=== PATIENT | female | born 1960 | race Caucasian/White ===

== ENCOUNTER 2023-10-22 15:45 | Emergency (ER) | payer OTHER, MEDICAID, SELFPAY ==
[2023-10-22 15:50] VITALS: BP 160/68; BMI 32.8
[2023-10-22 17:01] VITALS: BP 131/75
[2023-10-22 17:08] LABS: Urine Albumin Negative (Neg - Trace); Urine Bilirubin Negative (Negative); Urine Character Clear (Clear); Urine Color Yellow; Urine Glucose Negative (Negative); Urine Ketone Negative (Negative); Urine Leukocyte 2+ (Negative); Urine Nitrite Positive (Negative); Urine Occult Blood Trace (Negative); Urine Urobilinogen Negative (Neg - 1+); Urine pH 6.5 (5.0-9.0)
[2023-10-22 17:08] LABS: % Basophils 0.6 % (0-2); % Eosinophils 1.9 % (0-6); % Immature Granulocytes 0.2 % (0-0.5); % Lymphocytes 13.9 % (20.5-51.1); % Monocytes 6.7 % (1.7-9.3); % Neutrophils 76.7 % (42.2-75.2); Absolute Basophils 0.1 10^3/uL (0-0.2); Absolute Eosinophils 0.2 10^3/uL (0-0.7); Absolute Lymphocytes 1.2 10^3/uL (1.2-3.4); Absolute Monocytes 0.6 10^3/uL (0.1-0.6); Absolute Neutrophils 6.7 10^3/uL (1.4-6.5); Hematocrit 41.4 % (37.0-47.0); Hemoglobin 14.1 g/dL (12.0-16.0); Mean Corp Hgb Conc. 34.1 g/dL (33.0-37.0); Mean Corpuscular Hgb 29.8 pg (27.0-31.0); Mean Corpuscular Volume 87.5 fL (81.0-99.0); Mean Platelet Volume 11.1 fL (7.4-10.4); Nucleated Red Blood Cells % 0 %; Platelet Count 206 10^3/uL (130-400); Red Blood Cell Count 4.73 10^6/uL (4.20-5.40); Red Cell Dist. Width 13.2 % (11.5-14.5); White Blood Cell Count 8.8 10^3/uL (4.8-10.8)
[2023-10-22 17:29] LABS: Urine Squamous Cell 0-2 /LPF (Few)
[2023-10-22 17:30] LABS: Urine Bacteria Many (Negative); Urine Red Blood Cell 0-2 /HPF (0-2); Urine White Cell 50-60 /HPF (0-5)
[2023-10-22 17:47] LABS: ALT (SGPT) 14 U/L (0-35); AST (SGOT) 17 U/L (14-36); Alkaline Phosphatase 75 U/L (38-126); Blood Urea Nitrogen 11 mg/dl (7-17); Calcium 10.5 mg/dl (8.4-10.2); Carbon Dioxide 27 mmol/L (22-30); Chloride 106 mmol/L (98-107); Estimated Creatinine Clearance > 125 ml/min; Glucose 126 mg/dl (70-99); Potassium 4.1 mmol/L (3.5-5.1); Sodium 142 mmol/L (135-145); Total Bilirubin 0.5 mg/dl (0.2-1.3); eGFR > 60.00
[2023-10-22 18:29] VITALS: BP 127/105
[2023-10-22] MEDS: MONUROL 3 GM PO (18:33)
--- NOTE | 2023-10-22 23:49 | ED.GENMED ---
History of Present Illness
<Chiqui Zambrano NP - Last Filed: 10/23/23 16:23>
General
Chief Complaint: Urinary Symptoms
Source: patient
Exam Limitations: none
Time Seen by Provider: 10/22/23 16:10
Nursing documentation reviewed up to this point in time: agreed with
Travel History
Have you had any contact with someone who has COVID-19?: No
Do you have any symptoms of coronavirus? Fever > 100 degrees, chills, cough, shortness of breath, sore throat, loss of taste or smell, muscle aches, or headache?: No
History of Present Illness
History of Present Illness:
Patient to ED for UTI. She resides in a skilled facility. Reported UTI symptoms a few days ago. Urine C+S +e coli. Sent to ED for antibiotics. No fever/chills. No abdominal or back pain.
Past History
<Chiqui Zambrano NP - Last Filed: 10/23/23 16:23>
Past History
ED Past Medical History: Other (Dizziness, chronic; anemia, chronic numbness to bilateral feet.) and Other (recurrent syncope)
Social History
Tobacco: Non-smoker
Alcohol: None
Personal:
Living: with family
Employment: Not employed
Family History
Family History: Negative Diabetes or Early CAD
Review of Systems
<Chiqui Zambrano NP - Last Filed: 10/23/23 16:23>
Review of Systems
Allergies reviewed?: Yes
All Other Systems: ROS reviewed and negative except as documented in HPI and ROS
Constitutional: Reports no symptoms
EENT: Reports no symptoms
Respiratory: Reports no symptoms
Cardiac: Reports no symptoms
ABD/GI: Reports no symptoms
: Reports dysuria, frequency, incontinence and urgency
Musculoskeletal: Reports no symptoms
Skin: Reports no symptoms
Neurological: Reports no symptoms
Psychiatric: Reports no symptoms
Phy Exam
<Chiqui Zambrano NP - Last Filed: 10/23/23 16:23>
General Physical Exam
General Presentation: well appearing
General age: appears stated age
General Skin: warm and dry
General Habitus: normal
General Mental: alert
Cardiovascular Exam
Cardiovascular Exam: regular rate/rhythm
Pulmonary Exam
Pulmonary Exam: lungs clear and no respiratory distress
Gastrointestinal Exam
Gastrointestinal Exam: normal bowel sounds, non tender, soft and no organomegaly
Genitourinary Exam Female
Exam Female: vaginal bleeding
Vaginal Exam: blood
Vaginal Bleeding: minimal
Musculoskeletal Exam
Musculoskeletal Exam: neuro vasc intact
Skin Exam
Skin Exam: normal color, warm/dry and no rash
Psychiatric Exam
Psychiatric Exam: normal mood/affect
Course
<Chiqui Zambrano ADMISSIONS ADVISOR - Last Filed: 10/23/23 16:23>
Orders/Labs/Results
Orders:
Orders
10/22/23 16:16
Fosfomycin [Monurol] 3 gm PO ONCE ONE
10/22/23 16:40
Urinalysis Reflex To Culture Urgent
Date Specimen was Collected: 10/22/23
Time Specimen was Collected: 16:31
Urine Microscopic Reflex Cult Urgent
Urine Culture Urgent
RASHEEDA Source: U
Specimen Description:
Date Specimen was Collected: 10/22/23
Time Specimen was Collected: 16:31
10/22/23 16:47
US Pelvis W Transvag Combined Urgent
Reason For Exam: vaginal bleeding
10/22/23 16:59
Complete Blood Count/With Diff Urgent
Comprehensive Metabolic Panel Urgent
10/22/23 20:02
Iohexol [Omnipaque] See Protocol PO NOW STA
10/22/23 20:03
0.9% Sodium Chloride 1000 ml [Nss] 1,000 ml IV BOLUS
Abnormal Lab Results
10/22/23 10/22/23
16:40 16:59
MPV 11.1 H fL
(7.4-10.4)
Absolute Neuts (auto) 6.7 H 10^3/uL
(1.4-6.5)
Neutrophils % 76.7 H %
(42.2-75.2)
Lymphocytes % 13.9 L %
(20.5-51.1)
Creatinine 0.5 L mg/dL
(0.6-1.0)
Glucose 126 H mg/dl
(70-99)
Calcium 10.5 H mg/dl
(8.4-10.2)
Ur Occult Blood Reflex Trace A
(Negative)
Urine Nitrite (Reflex) Positive A
(Negative)
Leukocyte Esterase Rfl 2+ A
(Negative)
Urine WBC (Reflex) 50-60 A /HPF
(0-5)
Urine Bacteria (Reflex) Many A
(Negative)
10/22/23 16:59
10/22/23 16:59
Vital Signs
Initial and Last Documented VS:
Initial Vital Signs
Temp Pulse Resp BP Pulse Ox
98.5 F 79 17 160/68 95
10/22/23 15:50 10/22/23 15:50 10/22/23 15:50 10/22/23 15:50 10/22/23 15:50
Last Documented Vital Signs
Temp Pulse Resp BP Pulse Ox
98 F 69 20 146/48 96
10/23/23 01:36 10/23/23 01:36 10/23/23 01:36 10/23/23 01:36 10/23/23 01:37
<Anshu Oliver PA-C - Last Filed: 10/24/23 07:11>
Orders/Labs/Results
Orders:
Orders
10/22/23 16:16
Fosfomycin [Monurol] 3 gm PO ONCE ONE
10/22/23 16:40
Urinalysis Reflex To Culture Urgent
Date Specimen was Collected: 10/22/23
Time Specimen was Collected: 16:31
Urine Microscopic Reflex Cult Urgent
Urine Culture Urgent
RASHEEDA Source: U
Specimen Description:
Date Specimen was Collected: 10/22/23
Time Specimen was Collected: 16:31
10/22/23 16:47
US Pelvis W Transvag Combined Urgent
Reason For Exam: vaginal bleeding
10/22/23 16:59
Complete Blood Count/With Diff Urgent
Comprehensive Metabolic Panel Urgent
10/22/23 20:02
Iohexol [Omnipaque] See Protocol PO NOW STA
10/22/23 20:03
0.9% Sodium Chloride 1000 ml [Nss] 1,000 ml IV BOLUS
Abnormal Lab Results
10/22/23 10/22/23
16:40 16:59
MPV 11.1 H fL
(7.4-10.4)
Absolute Neuts (auto) 6.7 H 10^3/uL
(1.4-6.5)
Neutrophils % 76.7 H %
(42.2-75.2)
Lymphocytes % 13.9 L %
(20.5-51.1)
Creatinine 0.5 L mg/dL
(0.6-1.0)
Glucose 126 H mg/dl
(70-99)
Calcium 10.5 H mg/dl
(8.4-10.2)
Ur Occult Blood Reflex Trace A
(Negative)
Urine Nitrite (Reflex) Positive A
(Negative)
Leukocyte Esterase Rfl 2+ A
(Negative)
Urine WBC (Reflex) 50-60 A /HPF
(0-5)
Urine Bacteria (Reflex) Many A
(Negative)
10/22/23 16:59
10/22/23 16:59
Vital Signs
Initial and Last Documented VS:
Initial Vital Signs
Temp Pulse Resp BP Pulse Ox
98.5 F 79 17 160/68 95
10/22/23 15:50 10/22/23 15:50 10/22/23 15:50 10/22/23 15:50 10/22/23 15:50
Last Documented Vital Signs
Temp Pulse Resp BP Pulse Ox
98 F 69 20 146/48 96
10/23/23 01:36 10/23/23 01:36 10/23/23 01:36 10/23/23 01:36 10/23/23 01:37
<Chiqui Zambrano NP - Last Filed: 10/23/23 16:23>
*Radiology
Radiology exam reviewed: radiology read reviewed
*Pulse Oximetry
Patient hypoxic: no
*Critical Care Note
Total Time (30-74mins, 75-104mins- exclusive of procedures): Not Applicable
<Chiqui Zambrano NP - Last Filed: 10/23/23 16:23>
Update Note
Update Note:
Vaginal bleeding noted on exam today. Patient was unaware of bleeding. US report reviewed. She was notified of findings and need for FRONT OFFICE SPEC follow up. SHe will call in AM for appoitnment. Given Fosfomycin in dept. Tolerated med without and
adverse reactions. She is discharged home.
<Anshu Oliver PA-C - Last Filed: 10/24/23 07:11>
Update Note
Update Note:
Vaginal bleeding noted on exam today. Patient was unaware of bleeding. US report reviewed. She was notified of findings and need for FRONT OFFICE SPEC follow up. SHe will call in AM for appoitnment. Given Fosfomycin in dept. Tolerated med without and
adverse reactions. She is discharged home.
7:11 AM October 18: Urine culture shows greater than 100,000 colony-forming units of E. coli. Given fosfomycin in the department. Sensitivities pending
ED Attending Note
<Chiqui Zambrano NP - Last Filed: 10/23/23 16:23>
-
Portions of this chart may have been created with voice recognition software.� Occasional wrong word or��sound alike� substitutions may have occurred due to the inherent limitations of voice recognition software.
Discharge Plan
Departure
Patient Disposition: Care Home/SNF
Date of Disposition: 10/22/23
Time of Disposition: 19:28
Patient with high blood pressure during this ER visit?: No
Condition: Good
Covid-19: Not Applicable
Discharge Problem:
UTI (urinary tract infection), Vaginal bleeding
Instructions: Urinary Tract Infection, Adult (DC), Bleeding After Menopause
Prescriptions:
No Action
acetaminophen 325 mg Tablet
650 mg PO Q4H PRN (Reason: temp>100F)
acetaminophen 325 mg Tablet
650 mg PO Q6H PRN (Reason: mild pain)
atorvastatin 10 mg tablet
10 mg PO DAILY
cyanocobalamin (vitamin B-12) [Vitamin B-12] 1,000 mcg Tablet
1,000 mcg PO DAILY
aspirin 81 mg Tablet,Delayed Release (Dr/Ec)
81 mg PO DAILY
meropenem 1 gram Recon Soln
1 g IV BID
Referrals:
Luis Eduardo Yusuf DO [Family Provider] -
Maya Fleming MD [Active] - Call in 1-3 days for appt
Activity Restrictions/Additional Instructions:
As we discussed, your pelvic ultrasound shows endometrial thickening. You will need to follow up with gynecology for further evaluation of your vaginal bleeding and ultrasound results. Return to the emergency department for weakness, worsening
bleeding, pain, or for any further concerns.
Interventions
Interventions:
*Risk Screen - Suicide Last Done: 10/22/23 15:50
*General Assessment Last Done: 10/22/23 15:50
*Neglect/Abuse Screening Last Done: 10/22/23 15:50
ED- Fall Risk Assessment Last Done: 10/22/23 16:15
*ED COVID-19 Vaccine History Last Done: 10/23/23 01:37
*Nursing Disposition Last Done: 10/23/23 01:37
ED-Female Genitourinary Assessment Last Done: 10/22/23 16:15
Discharge Date and Time
Discharge Date/Time: 10/23/23 01:38
Print Language: TUNISIAN
[2023-10-23 01:36] VITALS: BP 146/48
== END 2023-10-23 01:38 ==
LOC: EMR 15:45
PROVIDERS: Nurse Practitioner; EMERGENCY PHYSICIAN Emergency Medicine; FAMILY PHYSICIAN Internal Medicine
DX: N39.0 Urinary tract infection, site not specified (principal); N93.9 Abnormal uterine and vaginal bleeding, unspecified; D64.9 Anemia, unspecified
CPT/HCPCS: 99283; 76830; 76856; 80053; 81003; 81015; 85025; 87086; 87088; 87186

== ENCOUNTER 2023-11-09 15:34 | Inpatient (IN) | payer MEDICAID, SELFPAY ==
[2023-11-09] VITALS (28 sets, daily range): BP systolic 88–148; BP diastolic 54–96; BMI 33.2
[2023-11-09 10:46] LABS: % Basophils 0.3 % (0-2); % Eosinophils 2.5 % (0-6); % Immature Granulocytes 0.3 % (0-0.5); % Lymphocytes 18.1 % (20.5-51.1); % Neutrophils 73.8 % (42.2-75.2); Absolute Eosinophils 0.2 10^3/uL (0-0.7); Absolute Lymphocytes 1.2 10^3/uL (1.2-3.4); Absolute Monocytes 0.3 10^3/uL (0.1-0.6); Absolute Neutrophils 4.7 10^3/uL (1.4-6.5); Hematocrit 36.6 % (37.0-47.0); Hemoglobin 12.3 g/dL (12.0-16.0); Mean Corp Hgb Conc. 33.6 g/dL (33.0-37.0); Mean Corpuscular Hgb 30.4 pg (27.0-31.0); Mean Corpuscular Volume 90.4 fL (81.0-99.0); Nucleated Red Blood Cells % 0 %; Platelet Count 182 10^3/uL (130-400); Red Blood Cell Count 4.05 10^6/uL (4.20-5.40); Red Cell Dist. Width 13.4 % (11.5-14.5); White Blood Cell Count 6.4 10^3/uL (4.8-10.8)
[2023-11-09] MEDS: NSS 1000 IV ×3 (10:52→16:34)
[2023-11-09 10:55] LABS: INR 1.01; PT 13.1 Sec (11.4-14.6)
[2023-11-09] MEDS: ZOFRAN 4 MG IV (10:55)
[2023-11-09 10:56] LABS: APTT 31.4 Sec (23.4-35.0)
[2023-11-09] MEDS: TRANEXAMIC ACID 100 IV (11:12)
[2023-11-09 11:16] LABS: ALT (SGPT) 15 U/L (0-35); AST (SGOT) 17 U/L (14-36); Alkaline Phosphatase 72 U/L (38-126); Blood Urea Nitrogen 12 mg/dl (7-17); Calcium 10.3 mg/dl (8.4-10.2); Carbon Dioxide 23 mmol/L (22-30); Chloride 108 mmol/L (98-107); Glucose 130 mg/dl (70-99); Potassium 3.8 mmol/L (3.5-5.1); Sodium 140 mmol/L (135-145); Total Bilirubin 0.5 mg/dl (0.2-1.3); Total Protein 6.8 g/dl (6.3-8.2); eGFR > 60.00
[2023-11-09] MEDS: NSS 500 IV (11:33)
--- NOTE | 2023-11-09 11:43 | ED.GENMED ---
History of Present Illness
<Columba Rucker PA-C - Last Filed: 11/09/23 20:05>
General
Chief Complaint: Vaginal Bleeding
Source: patient
Exam Limitations: none
Time Seen by Provider: 11/09/23 10:32
Nursing documentation reviewed up to this point in time: agreed with
Travel History
Have you had any contact with someone who has COVID-19?: No
Do you have any symptoms of coronavirus? Fever > 100 degrees, chills, cough, shortness of breath, sore throat, loss of taste or smell, muscle aches, or headache?: No
History of Present Illness
History of Present Illness:
63 y/o F h/o HLD
from [facility] for vaginal bleeding, near syncope
ptwas seen here 10/21 for uti and was bleeding then. had US showing endometrial thickening and fibroids
she was supposed to f/u with OB/GYNE outpatient but hasn't yet
has continued to have some bleeding the past few weeks
sounds like it increased over the past 4 ays, with some clots at times, so she stayed in bed mostly
today suddently while sitting she had spontaneous hemorrhage through her clothing onto the floor, passing clots
she got near syncopal for staff who called 911
bps for ems stable but pt is pale and bleeding
no pain
no h/o dvt/pe
no thinners
Past History
<Columba Rucker PA-C - Last Filed: 11/09/23 20:05>
Past History
ED Past Medical History: Other (Dizziness, chronic; anemia, chronic numbness to bilateral feet.) and Other (recurrent syncope)
Social History
Tobacco: Non-smoker
Alcohol: None
Personal:
Living: with family
Employment: Not employed
Family History
Family History: Negative Diabetes or Early CAD
Review of Systems
<Columba Rucker PA-C - Last Filed: 11/09/23 20:05>
Review of Systems
Allergies reviewed?: Yes
All Other Systems: Not applicable
Phy Exam
<Columba Rucker PA-C - Last Filed: 11/09/23 20:05>
Physical Exam
Physical Exam:
GENERAL: Alert , in no apparent distress
EYE: pupils equal and reactive
ENT: o/p clr, mmm.
CARDIAC: Regular rate and rhythm .
LUNGS: Clear breath sounds bilaterally, no acute respiratory distress, no wheezes/rales/rhonchi
ABDOMEN: Soft, without focal tenderness, no r/g, no cvat, normal bowel sounds
: ACTIVE BLEEDING VAGINALLY, LARGE WITH CLOTS, UNABLE TO VISUALIZE CERVIX, SUCTION USED,
ULTIMATELY PACKED WITH GAUZE
NEUROLOGICAL: Alert and oriented, no focal neuro deficits
SKIN: Warm and dry, skin intact. pale
MUSCULOSKELETAL: MILD edema, well perfused.
PSYCH: Normal and appropriate interaction.
Course
<Columba Rucker PA-C - Last Filed: 11/09/23 20:05>
Orders/Labs/Results
Orders:
Orders
11/09/23 10:31
IV Insert/Care/Rem.- Treatment PRN
Pulse Ox/spot Check [RESP] Urgent
Quantity: 1
Special Instructions: ON ROOM AIR
11/09/23 10:37
Type+Screen Urgent
Complete Blood Count/With Diff Urgent
Comprehensive Metabolic Panel Urgent
PT/INR [Prothrombin Time] Urgent
PTT Urgent
11/09/23 10:52
0.9% Sodium Chloride 1000 ml [Nss] 1,000 ml IV BOLUS
Ondansetron Injectable [Zofran] 4 mg .ROUTE .[facility]
11/09/23 10:55
Ondansetron Injectable [Zofran] 4 mg IV NOW STA
11/09/23 11:00
Blood Bank Products [* Blood Bank Products] Urgent
Blood Bank Products: *Packed RBC Leuko(PRBC's)
Quantity: 2
Transfuse Today: Yes
Reason: Bleeding
11/09/23 11:02
Tranexamic Acid 1000 mg/100 ml [Tranexamic Acid] 1,000 mg in 100 ml IV ONCE
11/09/23 11:23
Massive Tranfusion Protocol Stat
Reason to initiate: Bleeding/Hemorrhaging
An initial MTP pack includes:
�Four (4)) units of type specific, type compatible red blood cells.
�Four (4) units of type specific, or type compatible plasma. Type A thawed plasma may also be used if
type specific or type compatible is not readily available. Thawing plasma takes approximately 20-30
mins. If cryoprecipitate is requested with the initial MTP pack, thaw 3 FFP and 1 CRYOP, followed by the
4th FFP.
�One (1) unit of apheresis platelet (if available). If we do not have platelets available, Blood Bank
places a STAT order for two (2) units.
�Cryoprecipitate will be thawed upon request of the physician. If cryoprecipitate is requested by the
physician, alert physician there is an approximate 20-30 minute wait for thawing. If physician still
requests, thaw 1 pre-pooled cryoprecipitate. There will be no automatic thawing of cryoprecipitate by
the blood bank staff.
�Notify the ED, OR, or patient care area when MTP set is ready.
A Blood Permit is Required for all Blood.
FOR LAB PICKUP:
Take order sheet to Blood Bank to waste picker blood products in validated cooler
Immediately return to patient care area.
Blood products released by
Blood Products picked up by
Sent to
Date and Time
11/09/23 11:25
EKG [Electrocardiogram (*1)] Urgent
Reason for Study: Bradycardia / Tachycardia
11/09/23 11:26
EKG- Treatment ONCE
11/09/23 11:28
Emergent Blood Release Urgent
Blood Bank Products: *Packed RBC Leuko(PRBC's)
Quantity: 2
Reason: Bleeding
A Blood Permit is Required for all Blood.
FOR LAB PICKUP:
Take order sheet to Blood Bank to waste picker blood products in validated cooler
Immediately return to patient care area.
Blood products released by
Blood Products picked up by
Sent to
Date and Time
11/09/23 11:32
0.9% Sodium Chloride 500 ml [Nss] 500 ml IV BOLUS
11/09/23 11:35
0.9% Sodium Chloride 1000 ml [Nss] 1,000 ml IV BOLUS
11/09/23 11:41
HYDROmorphone [Dilaudid] 0.25 mg IV PACU-Q5MPRN PRN
HYDROmorphone [Dilaudid] 0.5 mg IV PACU-Q5MPRN PRN
Meperidine [Demerol] 12.5 mg IV PACU-Q5MPRN PRN
Ondansetron Injectable [Zofran] 4 mg IV PACU-ONCEPRN PRN
Prochlorperazine [Compazine] 5 mg IV PACU-ONCEPRN PRN
Notify MD As Directed
Notify physician if: for SDS patients with known or suspected sleep obstructive sleep apnea, monitor in the
PACU.
Notify MD for any apneic/desaturation episodes
O2 Therapy [RESP] Urgent
Titrate/Wean O2 to maintain O2 sat greater than (%): 92
Special Instructions: -Provide supplemental oxygen to achieve O2 sat of 92% or greater.
-After 15 min, may wean O2 and discontinue if patient is able to maintain O2 sat of 92%
or greater during recovery period.
If patient is a discharge home, without oxygen therapy, notify anestheiologist if
unable to maintain O2 SAT of 92% or greater on room air for MD clearance.
11/09/23 11:42
Hematocrit Stat
Hemoglobin Stat
11/09/23 11:45
Normosol (Mult Electrolytes) [Normosol-R] 1,000 ml IV PER PROTOCOL
11/09/23 12:04
Phenylephrine HCl/0.9% NaCl [Nash-Synephrine] 1,000 mcg .ROUTE .STK-MED ONE
11/09/23 12:07
Fentanyl Citrate/Pf [Sublimaze] 100 mcg .ROUTE .[facility]-MED ONE
Midazolam HCl [Versed] 2 mg .ROUTE .STK-MED ONE
11/09/23 12:17
Propofol [Diprivan] 20 ml .ROUTE .[facility]-MED
Succinylcholine Chloride [Succinylcholine] 200 mg .ROUTE .STK-MED ONE
11/09/23 12:53
Dexamethasone Sod Phosphate [Decadron] 20 mg .ROUTE .ST[facility]-MED ONE
Ondansetron Injectable [Zofran] 4 mg .ROUTE .STK-MED ONE
OR Frozen Section Stat
Pre-Operative Diagnosis: abnormal uterine bleeding
Post-Operative Diagnosis: abnormal uterine bleeding
Operative Procedure: Hysteroscopy, D&C
Surgeon: Akhil
Circulating Nurse: Josey Richard
Type of Anesthesia: General
OR Room: [facility] - [id number]
Time: 13:12
Frozen Section: Endometrial curettings
Time: 13:12
Frozen Section: Endocervical curettings
11/09/23 12:54
Acetaminophen 1000MG/100Ml [Ofirmev] 1,000 mg in 100 ml .ROUTE .STK-MED
11/09/23 12:59
OR Cytology Routine
Date Specimen was Collected: 11/09/23
Time Specimen was Collected: 13:00
Source: Thin Prep PAP, Cervical
Clinical Impression: abnormal uterine bleeding
11/09/23 13:12
Urine Culture Routine
RASHEEDA Source: Urine
Specimen Description:
Obtained by: Straight Cath
Date Specimen was Collected: 11/09/23
Time Specimen was Collected: 12:53
11/09/23 13:32
Admit/Transfer Patient As Directed
Co-Sign Provider:
Level of Care: Inpatient admission
Assign to:: Telemetry
Physician / Group: Akhil
Transfer to: Medical/Surgical
Diagnosis: s/p hysteroscopy D&C; postmenopausal bleeding; hemorrhage
Patient Condition: Good
Reason for Telemetry: Other
Other Reason for Telemetry: bleeding; hx of coronary artery disease
Date to Stop Telemetry: 11/11/23
Time to Stop Telemetry: 11:00
Reason for Hospitalization: hemorrhage
Expected length of stay greater than two midnights?: Yes
ELOS- Estimated Length of Stay in days: 3
I certify the patient meets the requirements for IP care: Yes
Reason for Overnight Stay: Bleeding/Bleeding Risk
11/09/23 14:05
Green Catheter [Catheter- Indwelling] As Directed
Reason for insertion: Anai-Op Remove POD #2
Comment: had vaginal packing, unable to ambulate, need accurate I/Os
I/O [Intake/ Output] As Directed
Frequency: q1h
Call for Urine Output less than: 30ml/hr
11/09/23 14:20
CT Chest/abd/pel W Iv Cont Urgent
Reason For Exam: endometrial cancer, eval for metastatic disease
11/09/23 14:25
Consult Cardiology [CARDIOLOGY CONSULT] Urgent
Consulting Provider: Ayo Corrales
Was physician already notified: Yes
Reason for consult: cardiac clearance for hysterectomy 11/09
Consult Hematology [HEMATOLOGY CONSULT] Urgent
Consulting Provider: Rajinder Lagos
Was physician already notified: Yes
Reason for consult: endometrial cancer
11/09/23 14:29
DX Deep Vein Thrombosis Video Routine
11/09/23 Dinner
Clear Liquid
At Your Request: Limited Participation
11/09/23 15:36
0.9% Sodium Chloride 1000 ml [Nss] 1,000 ml IV 125 mls/hr
Acetaminophen [Tylenol] 650 mg PO Q4HPRN PRN
Acetaminophen [Tylenol] 650 mg PO Q6HPRN PRN
Ondansetron Injectable [Zofran] 4 mg IV Q6HPRN PRN
Observe for Vaginal Bleeding DIRECTED
Call for: saturating maxipad hourly
11/09/23 15:36
Admit Patient As Directed
Co-Sign Provider:
Level of Care: Inpatient admission
Assign to:: Telemetry
Physician / Group: Akhil
Diagnosis: Postmenopausal bleeding/hemorrhage
Patient Condition: Good
Reason for Telemetry: Other
Other Reason for Telemetry: bleeding, anemia, hx coronary art. disease
Date to Stop Telemetry: 11/11/23
Time to Stop Telemetry: 11:00
Reason for Hospitalization: postmenopausal bleeding, hemorrhage concern for malignancy
Expected length of stay greater than two midnights?: Yes
ELOS- Estimated Length of Stay in days: 3
I certify the patient meets the requirements for IP care: Yes
Reason for Overnight Stay: Bleeding/Bleeding Risk
Diagnosis: post-operative hysterectomy
Activity As Directed
Activity Level: Bedrest
Out of Bed-Early Mobility
Advance Diet as Tolerated As Directed
Goal Diet: Regular
Anti-embolism (JODI) Hose As Directed
Type: Thigh high
INT (Intravenous Needle Therapy) As Directed
Intake/ Output As Directed
Frequency: Per unit guidelines
Call for Urine Output less than: 30 mL over 1 hour
Comment: Strict Intake and Output
Notify MD As Directed
Notify physician if: Call doctor for temperature >100.4 F, systolic blood pressure > 150 or < 90, urine output
less than 30 mL over 1 hour, Pulse > 100 or < 50
Pneumatic Compression Sleeves As Directed
Type: Thigh high
Vaginal Packing As Directed
Comment: leave in
Vital Signs As Directed
Frequency: Per unit guidelines
Call for:: temp >100.4
Vital Signs As Directed
Frequency: Post-operative guidelines
Call for:: temp > 100.4 F, SBP > 150 or < 90, Pulse > 100 or < 50
Rx Incentive Spirometry [RESP] Routine
Frequency: q1h while awake
DX Deep Vein Thrombosis Video Routine
11/09/23 16:39
Basic Metabolic Panel Urgent
Comment: in PACU
H&H Urgent
Comment: in PACU
11/09/23 23:00
Hematocrit Urgent
Hemoglobin Urgent
11/10/23 Breakfast
NPO
Allow oral meds: No
Allow clear liquids: No
NPO for procedure after (time): midnight 11/10/23
Blood Urea Nitrogen IN AM
Complete Blood Count/With Diff IN AM
Creatinine IN AM
Electrolytes IN AM
Heparin 5,000 units SC ONCE ONE
11/10/23 08:00
Atorvastatin [Lipitor] 10 mg PO DAILY
11/11/23 11:00
DC Protocol for Telemetry ONCE
Abnormal Lab Results
11/09/23 11/09/23
10:37 11:42
RBC 4.05 L 10^6/uL
(4.20-5.40)
Hgb 9.7 L D g/dL
(12.0-16.0)
Hct 36.6 L % 28.9 L %
(37.0-47.0) (37.0-47.0)
MPV 11.0 H fL
(7.4-10.4)
Lymphocytes % 18.1 L %
(20.5-51.1)
Chloride 108 H mmol/L
(98-107)
Creatinine 0.5 L mg/dL
(0.6-1.0)
Glucose 130 H mg/dl
(70-99)
Calcium 10.3 H mg/dl
(8.4-10.2)
Antibody Screen Positive A
(Negative)
Crossmatch IS Only See Detail
MTS Gel Crossmatch See Detail
11/09/23 11:42
11/09/23 10:37
Vital Signs
Initial and Last Documented VS:
Initial Vital Signs
Pulse Resp Pulse Ox
70 20 99
11/09/23 10:35 11/09/23 10:35 11/09/23 10:35
Last Documented Vital Signs
Temp Pulse Resp BP Pulse Ox
97.8 F 94 18 144/73 96
11/09/23 23:20 11/09/23 23:20 11/09/23 23:20 11/09/23 23:20 11/09/23 23:20
<Cora Molina, DO - Last Filed: 11/10/23 01:48>
Orders/Labs/Results
Orders:
Orders
11/09/23 10:31
IV Insert/Care/Rem.- Treatment PRN
Pulse Ox/spot Check [RESP] Urgent
Quantity: 1
Special Instructions: ON ROOM AIR
11/09/23 10:37
Type+Screen Urgent
Complete Blood Count/With Diff Urgent
Comprehensive Metabolic Panel Urgent
PT/INR [Prothrombin Time] Urgent
PTT Urgent
11/09/23 10:52
0.9% Sodium Chloride 1000 ml [Nss] 1,000 ml IV BOLUS
Ondansetron Injectable [Zofran] 4 mg .ROUTE .STK-MED ONE
11/09/23 10:55
Ondansetron Injectable [Zofran] 4 mg IV NOW STA
11/09/23 11:00
Blood Bank Products [* Blood Bank Products] Urgent
Blood Bank Products: *Packed RBC Leuko(PRBC's)
Quantity: 2
Transfuse Today: Yes
Reason: Bleeding
11/09/23 11:02
Tranexamic Acid 1000 mg/100 ml [Tranexamic Acid] 1,000 mg in 100 ml IV ONCE
11/09/23 11:23
Massive Tranfusion Protocol Stat
Reason to initiate: Bleeding/Hemorrhaging
An initial MTP pack includes:
�Four (4)) units of type specific, type compatible red blood cells.
�Four (4) units of type specific, or type compatible plasma. Type A thawed plasma may also be used if
type specific or type compatible is not readily available. Thawing plasma takes approximately 20-30
mins. If cryoprecipitate is requested with the initial MTP pack, thaw 3 FFP and 1 CRYOP, followed by the
4th FFP.
�One (1) unit of apheresis platelet (if available). If we do not have platelets available, Blood Bank
places a STAT order for two (2) units.
�Cryoprecipitate will be thawed upon request of the physician. If cryoprecipitate is requested by the
physician, alert physician there is an approximate 20-30 minute wait for thawing. If physician still
requests, thaw 1 pre-pooled cryoprecipitate. There will be no automatic thawing of cryoprecipitate by
the blood bank staff.
�Notify the ED, OR, or patient care area when MTP set is ready.
A Blood Permit is Required for all Blood.
FOR LAB PICKUP:
Take order sheet to Blood Bank to waste picker blood products in validated cooler
Immediately return to patient care area.
Blood products released by
Blood Products picked up by
Sent to
Date and Time
11/09/23 11:25
EKG [Electrocardiogram (*1)] Urgent
Reason for Study: Bradycardia / Tachycardia
11/09/23 11:26
EKG- Treatment ONCE
11/09/23 11:28
Emergent Blood Release Urgent
Blood Bank Products: *Packed RBC Leuko(PRBC's)
Quantity: 2
Reason: Bleeding
A Blood Permit is Required for all Blood.
FOR LAB PICKUP:
Take order sheet to Blood Bank to waste picker blood products in validated cooler
Immediately return to patient care area.
Blood products released by
Blood Products picked up by
Sent to
Date and Time
11/09/23 11:32
0.9% Sodium Chloride 500 ml [Nss] 500 ml IV BOLUS
11/09/23 11:35
0.9% Sodium Chloride 1000 ml [Nss] 1,000 ml IV BOLUS
11/09/23 11:41
HYDROmorphone [Dilaudid] 0.25 mg IV PACU-Q5MPRN PRN
HYDROmorphone [Dilaudid] 0.5 mg IV PACU-Q5MPRN PRN
Meperidine [Demerol] 12.5 mg IV PACU-Q5MPRN PRN
Ondansetron Injectable [Zofran] 4 mg IV PACU-ONCEPRN PRN
Prochlorperazine [Compazine] 5 mg IV PACU-ONCEPRN PRN
Notify MD As Directed
Notify physician if: for SDS patients with known or suspected sleep obstructive sleep apnea, monitor in the
PACU.
Notify MD for any apneic/desaturation episodes
O2 Therapy [RESP] Urgent
Titrate/Wean O2 to maintain O2 sat greater than (%): 92
Special Instructions: -Provide supplemental oxygen to achieve O2 sat of 92% or greater.
-After 15 min, may wean O2 and discontinue if patient is able to maintain O2 sat of 92%
or greater during recovery period.
If patient is a discharge home, without oxygen therapy, notify anestheiologist if
unable to maintain O2 SAT of 92% or greater on room air for MD clearance.
11/09/23 11:42
Hematocrit Stat
Hemoglobin Stat
11/09/23 11:45
Normosol (Mult Electrolytes) [Normosol-R] 1,000 ml IV PER PROTOCOL
11/09/23 12:04
Phenylephrine HCl/0.9% NaCl [Nash-Synephrine] 1,000 mcg .ROUTE .STK-MED ONE
11/09/23 12:07
Fentanyl Citrate/Pf [Sublimaze] 100 mcg .ROUTE .[facility]-MED ONE
Midazolam HCl [Versed] 2 mg .ROUTE .[facility]-MED ONE
11/09/23 12:17
Propofol [Diprivan] 20 ml .ROUTE .[facility]-MED
Succinylcholine Chloride [Succinylcholine] 200 mg .ROUTE .[facility]-MED ONE
11/09/23 12:53
Dexamethasone Sod Phosphate [Decadron] 20 mg .ROUTE .[facility]-MED ONE
Ondansetron Injectable [Zofran] 4 mg .ROUTE .[facility]-MED ONE
OR Frozen Section Stat
Pre-Operative Diagnosis: abnormal uterine bleeding
Post-Operative Diagnosis: abnormal uterine bleeding
Operative Procedure: Hysteroscopy, D&C
Surgeon: Akhil
Circulating Nurse: Josey Ramos
Type of Anesthesia: General
OR Room: [place] [id number]
Time: 13:12
Frozen Section: Endometrial curettings
Time: 13:12
Frozen Section: Endocervical curettings
11/09/23 12:54
Acetaminophen 1000MG/100Ml [Ofirmev] 1,000 mg in 100 ml .ROUTE .STK-MED
11/09/23 12:59
OR Cytology Routine
Date Specimen was Collected: 11/09/23
Time Specimen was Collected: 13:00
Source: Thin Prep PAP, Cervical
Clinical Impression: abnormal uterine bleeding
11/09/23 13:12
Urine Culture Routine
RASHEEDA Source: Urine
Specimen Description:
Obtained by: Straight Cath
Date Specimen was Collected: 11/09/23
Time Specimen was Collected: 12:53
11/09/23 13:32
Admit/Transfer Patient As Directed
Co-Sign Provider:
Level of Care: Inpatient admission
Assign to:: Telemetry
Physician / Group: Akhil
Transfer to: Medical/Surgical
Diagnosis: s/p hysteroscopy D&C; postmenopausal bleeding; hemorrhage
Patient Condition: Good
Reason for Telemetry: Other
Other Reason for Telemetry: bleeding; hx of coronary artery disease
Date to Stop Telemetry: 11/11/23
Time to Stop Telemetry: 11:00
Reason for Hospitalization: hemorrhage
Expected length of stay greater than two midnights?: Yes
ELOS- Estimated Length of Stay in days: 3
I certify the patient meets the requirements for IP care: Yes
Reason for Overnight Stay: Bleeding/Bleeding Risk
11/09/23 14:05
Green Catheter [Catheter- Indwelling] As Directed
Reason for insertion: Anai-Op Remove POD #2
Comment: had vaginal packing, unable to ambulate, need accurate I/Os
I/O [Intake/ Output] As Directed
Frequency: q1h
Call for Urine Output less than: 30ml/hr
11/09/23 14:20
CT Chest/abd/pel W Iv Cont Urgent
Reason For Exam: endometrial cancer, eval for metastatic disease
11/09/23 14:25
Consult Cardiology [CARDIOLOGY CONSULT] Urgent
Consulting Provider: Ayo Corrales
Was physician already notified: Yes
Reason for consult: cardiac clearance for hysterectomy 11/09
Consult Hematology [HEMATOLOGY CONSULT] Urgent
Consulting Provider: Rajinder Lagos
Was physician already notified: Yes
Reason for consult: endometrial cancer
11/09/23 14:29
DX Deep Vein Thrombosis Video Routine
11/09/23 Dinner
Clear Liquid
At Your Request: Limited Participation
11/09/23 15:36
0.9% Sodium Chloride 1000 ml [Nss] 1,000 ml IV 125 mls/hr
Acetaminophen [Tylenol] 650 mg PO Q4HPRN PRN
Acetaminophen [Tylenol] 650 mg PO Q6HPRN PRN
Ondansetron Injectable [Zofran] 4 mg IV Q6HPRN PRN
Observe for Vaginal Bleeding DIRECTED
Call for: saturating maxipad hourly
11/09/23 15:36
Admit Patient As Directed
Co-Sign Provider:
Level of Care: Inpatient admission
Assign to:: Telemetry
Physician / Group: Akhil
Diagnosis: Postmenopausal bleeding/hemorrhage
Patient Condition: Good
Reason for Telemetry: Other
Other Reason for Telemetry: bleeding, anemia, hx coronary art. disease
Date to Stop Telemetry: 11/11/23
Time to Stop Telemetry: 11:00
Reason for Hospitalization: postmenopausal bleeding, hemorrhage concern for malignancy
Expected length of stay greater than two midnights?: Yes
ELOS- Estimated Length of Stay in days: 3
I certify the patient meets the requirements for IP care: Yes
Reason for Overnight Stay: Bleeding/Bleeding Risk
Diagnosis: post-operative hysterectomy
Activity As Directed
Activity Level: Bedrest
Out of Bed-Early Mobility
Advance Diet as Tolerated As Directed
Goal Diet: Regular
Anti-embolism (JODI) Hose As Directed
Type: Thigh high
INT (Intravenous Needle Therapy) As Directed
Intake/ Output As Directed
Frequency: Per unit guidelines
Call for Urine Output less than: 30 mL over 1 hour
Comment: Strict Intake and Output
Notify MD As Directed
Notify physician if: Call doctor for temperature >100.4 F, systolic blood pressure > 150 or < 90, urine output
less than 30 mL over 1 hour, Pulse > 100 or < 50
Pneumatic Compression Sleeves As Directed
Type: Thigh high
Vaginal Packing As Directed
Comment: leave in
Vital Signs As Directed
Frequency: Per unit guidelines
Call for:: temp >100.4
Vital Signs As Directed
Frequency: Post-operative guidelines
Call for:: temp > 100.4 F, SBP > 150 or < 90, Pulse > 100 or < 50
Rx Incentive Spirometry [RESP] Routine
Frequency: q1h while awake
DX Deep Vein Thrombosis Video Routine
11/09/23 16:39
Basic Metabolic Panel Urgent
Comment: in PACU
H&H Urgent
Comment: in PACU
11/09/23 23:00
Hematocrit Urgent
Hemoglobin Urgent
11/10/23 Breakfast
NPO
Allow oral meds: No
Allow clear liquids: No
NPO for procedure after (time): midnight 11/10/23
Blood Urea Nitrogen IN AM
Complete Blood Count/With Diff IN AM
Creatinine IN AM
Electrolytes IN AM
Heparin 5,000 units SC ONCE ONE
11/10/23 08:00
Atorvastatin [Lipitor] 10 mg PO DAILY
11/11/23 11:00
DC Protocol for Telemetry ONCE
Abnormal Lab Results
11/09/23 11/09/23
10:37 11:42
RBC 4.05 L 10^6/uL
(4.20-5.40)
Hgb 9.7 L D g/dL
(12.0-16.0)
Hct 36.6 L % 28.9 L %
(37.0-47.0) (37.0-47.0)
MPV 11.0 H fL
(7.4-10.4)
Lymphocytes % 18.1 L %
(20.5-51.1)
Chloride 108 H mmol/L
(98-107)
Creatinine 0.5 L mg/dL
(0.6-1.0)
Glucose 130 H mg/dl
(70-99)
Calcium 10.3 H mg/dl
(8.4-10.2)
Antibody Screen Positive A
(Negative)
Crossmatch IS Only See Detail
MTS Gel Crossmatch See Detail
11/09/23 11:42
11/09/23 10:37
Vital Signs
Initial and Last Documented VS:
Initial Vital Signs
Pulse Resp Pulse Ox
70 20 99
11/09/23 10:35 11/09/23 10:35 11/09/23 10:35
Last Documented Vital Signs
Temp Pulse Resp BP Pulse Ox
97.8 F 94 18 144/73 96
11/09/23 23:20 11/09/23 23:20 11/09/23 23:20 11/09/23 23:20 11/09/23 23:20
<Columba Rucker PA-C - Last Filed: 11/09/23 20:05>
MDM/Problems Addressed
Differential Diagnosis Includes:
endometrial hyperplasia, cancer, hemorrhagic shock
MDM/Problems Addressed:
63 y/o F with post menopausal bleeding
hemorrhage today with near syncope
stable bp on arrival but large volume blood loss with multiple diaper changes soaked in short time frame with clots
large clots removed from vagina without cessation of bleeding
pt still filling up despite vaginal packing
consulted specialist urgently for urgent evaluation
transufion of uncrossmatched blood for sypmtosm of spetic shock when pt became minimally responsive and galilea in the 50s
pt responded to resusciptation with blood and IVF
risk benefit of TXA discussed with ed attending, benefits outweigh risk
pt takent o OR for hysteroscopy and D&E
i spoke with pt's
<Columba Rucker PA-C - Last Filed: 11/09/23 20:05>
*Critical Care Note
Total Time (30-74mins, 75-104mins- exclusive of procedures): 80 (80)
comment:
hemorrhagic shock management, discussion with senior market intelligence consultant, arranging for emergent blood transfusion
ED Attending Note
<Columba Rucker PA-C - Last Filed: 11/09/23 20:05>
-
Portions of this chart may have been created with voice recognition software.� Occasional wrong word or��sound alike� substitutions may have occurred due to the inherent limitations of voice recognition software.
<Cora Molina DO - Last Filed: 11/10/23 01:48>
ED Attending Note
Patient seen and examined by attending physician: Yes
ED Attending Note:
I have reviewed and agree with history and treatment plan. 63yoF presenting with vaginal bleeding worsening today. Had ultrasound showing endometrial thickening and fibroids a few weeks ago, but has not follow up with [facility] as instructed yet. Patient
had near syncopal episode. On initial exam, Heart RRR, lungs clear, abdomen soft nondistended nontender, significant vaginal bleeding, pale, not diaphoretic, mentating well. Clots evacuated and vagina packed by PA at bedside with continued
significant bleeding. Consulted CHILDREN'S T[facility]OR [facility] who evaluated patient at bedside, will take to OR. Patient received IVF, blood prior to leaving ER with improvement in HR and BP. Ordered TXA
Discharge Plan
Departure
Patient Disposition: Admit
Date of Disposition: 11/09/23
Time of Disposition: 11:43
Admit to: OR
Admit to doctor: akhil
Presentation/result/management discussed w/ accepting MD/DO: angy
Patient with high blood pressure during this ER visit?: No
Condition: Fair
Covid-19: Not Applicable
Discharge Problem:
Abnormal vaginal bleeding, Painless vaginal hemorrhage
Interventions
Interventions:
*Risk Screen - Suicide Last Done: 11/09/23 12:03
*General Assessment Last Done: 11/09/23 12:03
*Neglect/Abuse Screening Last Done: 11/09/23 12:03
ED- Fall Risk Assessment Last Done: 11/09/23 11:10
*ED COVID-19 Vaccine History Last Done: 11/09/23 12:03
*Nursing Disposition Last Done: 11/09/23 12:00
ED-Female Genitourinary Assessment Last Done: 11/09/23 10:44
Discharge Date and Time
Discharge Date/Time: 11/09/23 12:00
--- NOTE | 2023-11-09 11:45 | EDRN ---
350ml of blood in suction container.
[2023-11-09 11:47] LABS: Hematocrit 28.9 % (37.0-47.0); Hemoglobin 9.7 g/dL (12.0-16.0)
--- NOTE | 2023-11-09 12:15 | W.PN.UPDATE ---
Update Note
Progress Note Update
Seen IN ER.
Bleeding heavily from vagina.
Gave TXA
Hgb was 12 dropped to 9.7 in approx [address] and going for hysteroscopy D&C to control bleeding.
BLood transfusion started in ER- Dr. Dahl received call from Blood bank pt has +ab screen. Due to emergent nature of bleeding and symptomatic anemia with pallor, feeling lightheaded, we do not feel it is safe to wait over an hour for blood bank to
complete screening and id. Dr. Dahl and I both agreed.
O neg blood started in ER.
Teds and SCDs placed by me and DAIRY MANAGER in dept.
Spoke with Dr. Lagos who is out of town today. Will order path frozen section and CT abd/pelvis today.
Dr. Blanca aware of frozen section on specimen today.
--- NOTE | 2023-11-09 13:47 | W.IMMPOSTOP ---
Surgical Immed Post Op Note
-
Primary Surgeon: Fadia Landaverde DO
Assisting Surgeon: none
Pre-op Diagnosis: Postmenopausal bleeding/hemorrhage, fibroid uterus
Post-op Diagnosis: same
Procedure Performed: hysteroscopy D&C
Anesthesia Type: general Dr. Cuellar
Specimen / Cultures: 1. endocervical curettings 2. endometrial curettings 3. pap smear
Estimated Blood Loss: 400ml
Complications: none
BLood transfusion: 2 U PRBCs started in ER and continued in OR.
Vaginal packing [address]
Operative Findings: Enlarged fibroid uterus sounded to 14cm. Moderate amount of tissue retrieved with D&C specimen.
Counts correct times 2.
--- NOTE | 2023-11-09 13:55 | W.PN.UPDATE ---
Update Note
Progress Note Update
Spoke to Patient's sister, Tasha. Relayed information about Starr and her bleeding. Reviewed plan of care.
Anticipate CT Abd/pelvis later today.
will monitor bleeding
Discussed possible LARRY BSO LND tomorrow with keyboard instrument repairer onc.
--- NOTE | 2023-11-09 14:31 | W.PN.UPDATE ---
Update Note
Progress Note Update
Spoke with patient's to inform him of findings/surgery. Pt in PACU now. We were waiting for path results at the time.
No bleeding through packing.
Rec'd call from Dr. Blanca-endometrial adenocarcinoma suspected endometrioid type.
Will obtain cardiac clearance -consulted Dr. Ayo Corrales-aware.
Plan [facility] BSO Cancer staging with Dr. Lagos tomorrow. I reviewed with Dr. Lagos today.
SCDs on for prophylaxis. Will not give heparin at this time due to bleeding.
Heparin SC ordered for am.
--- NOTE | 2023-11-09 16:10 | CON.CAR ---
Addendum entered and electronically signed by Ayo Corrales MD 11/09/23 17:18:
63-year-old woman presented to the emergency department with vaginal bleeding, underwent D&C earlier today and preliminary diagnosis is endometrial cancer. Cardiology consult requested for preoperative assessment prior to LARRY/BSO with staging. No
cardiac history of note, had echo 12 years ago with trace mitral regurgitation and MAC, no cardiac symptoms but is wheelchair-bound
Allergies: Cephalosporins, erythromycin, sulfa
Outpatient meds: Acetaminophen, aspirin 81 mg a day, vitamin B12 and atorvastatin 10 mg a day
PMH: Hypertension, hypercholesterolemia, ambulatory dysfunction, unspecified atherosclerotic cardiovascular disease,Class III obesity, long history of vasovagal syncope, nonspecific brain MRI abnormalities left hemisphere 2011
SH has severe ambulatory dysfunction, is wheelchair-bound, lives in [facility] with her . 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
Tobacco: Lifelong non-smoker
Alcohol: None
ROS: Negative except as above
92/65, Weight 104 kg, pulse 72, patient seen in PACU sedated, communicative, offers no complaints, head neck exam unremarkable, lungs are clear regular rate and rhythm without obvious murmurs or gallops
EKG: Sinus rhythm, left axis
Hemoglobin 12.3 earlier this morning, has received 2 units of packed cells, BUN and creatinine 12 and 0.5, chloride 108 glucose 130
Impression:
Endometrial cancer
Hyperlipidemia
Hypertension
h/o vasovagal syncope
Obesity
Echo 01/06/2012: EF 60%, trace MR, trace TR, estimated PAP 35 mmHg
Plan:
She presents for preoperative assessment for LARRY/BSO/staging for recently discovered endometrial cancer.
She has no overt cardiovascular history but her functional status is very limited. Her revised cardiac risk index is 2 in the event that we count her nonspecific MRI findings from long ago as cerebrovascular events, suggesting a 10% 30-day risk.
Will check proBNP to further stratify though suspect this will be normal.
However, given her clinical situation there is no point to further risk stratification beyond an echocardiogram which we can perform later today or early a.m., and she seems medically optimized so proceeding to surgery as planned is recommended.
We will continue to follow.
Original Note:
Consultation
Consultation Request
Date/Time Consultation Requested: 11/09/2023
Date/Time Consultation Performed: 11/09/2023
Requesting Provider: Dr. Landaverde
Performing Provider: Dr. RANDY Corrales
Reason for Consultation: Preop Evaluation
Medical History
-
History of Present Illness:
HPI: Starr is a 64-year-old female with past medical history of hyperlipidemia and vasovagal syncope. She presented to ER for evaluation of vaginal bleeding. Heavy bleeding was noted in the ER and she was given TXA. Her hemoglobin dropped
from 12-9.7 and 1 hour. She was given 2 units PRBCs and was taken urgently for hysteroscopy D&C. Pathology concerning for possible endometrial adenocarcinoma. Plan is for tentative LARRY/BSO in AM. Cardiology consulted for preop evaluation.
Patient denies any significant coronary history. She states her only prior cardiac testing was in 2011 when she had a echocardiogram and carotid ultrasound. She has no history of chest pain or shortness of breath. EKG 11/09/2023 sinus rhythm with
no acute ischemic changes noted. She is asymptomatic currently, seen in PACU post procedurally.
PMH:
Hyperlipidemia
h/o vasovagal syncope
Past Medical History
Past Medical History: Other (In HPI)
Social History
Tobacco: Non-Smoker
Alcohol: None
Drug: None
Personal:
Living: Longterm
Employment: Retired
Family History
Family History: CAD and Cancer
Allergies / Home Medications
Allergy/AdvReac Type Severity Reaction Status Date / Time
cefuroxime [From Ceftin] Allergy Unknown Verified 11/09/23 10:30
erythromycin base Allergy Unknown Verified 11/09/23 10:30
Sulfa (Sulfonamide Allergy Unknown Verified 11/09/23 10:30
Antibiotics)
�Medication �Instructions �Recorded �Confirmed �Type
acetaminophen 325 mg tablet 650 mg PO Q4H PRN temp>100F 10/22/23 11/09/23 History
acetaminophen 325 mg tablet 650 mg PO Q6HPRN PRN mild pain 10/22/23 11/09/23 History
aspirin 81 mg tablet,delayed 81 mg PO DAILY 10/22/23 11/09/23 History
release
atorvastatin 10 mg tablet 10 mg PO DAILY 10/22/23 11/09/23 History
cyanocobalamin (vitamin B-12) 1,000 mcg PO DAILY 10/22/23 11/09/23 History
1,000 mcg tablet (Vitamin B-12)
Review of Systems
-
History Source: Patient
All other systems: Negative unless noted
Physical Exam
Vital Signs
Temp Pulse Resp BP Pulse Ox
97.6 F 76 16 104/70 98
11/09/23 13:28 11/09/23 15:30 11/09/23 15:30 11/09/23 15:30 11/09/23 15:30
Physical Exam
General: Well Developed, Well Nourished and No Apparent Distress
HEENT: Normocephalic, Anicteric and Moist Mucous Membranes
Respiratory: Clear and Non Labored Respirations
Cardiac: S1/S2 and Regular Rhythm
Musculoskeletal: No Clubbing, No Cyanosis and No Edema
Skin: Warm and Dry
Neuro: AO x 3 and Nonfocal/Grossly Intact
Psych: Calm
Impression / Plan
-
PCP: Dr. Mahmood
Bods Developer: None
Impression:
Vaginal bleeding
Acute blood loss anemia
Concern for endometrial cancer
Hyperlipidemia
h/o vasovagal syncope
Echo 01/06/2012: EF 60%, trace MR, trace TR, estimated PAP 35 mmHg
Plan:
-Presented with heavy vaginal bleeding. Her hemoglobin dropped over 2g in 1 hour, down to 9.7. Given 2 units PRBCs, follow-up Hgb pending.
-Taken urgently for hysteroscopy D&C. Pathology concerning for endometrial adenocarcinoma.
-Plan is for tentative LARRY/BSO in AM. Cardiology consulted for preop evaluation.
-Patient has no known cardiac history other than hyperlipidemia for which she is maintained on atorvastatin 10 mg daily. She also takes a prophylactic baby aspirin daily.
-Aspirin on hold given anemia and vaginal bleeding.
-She has no chest pain or shortness of breath. She has limited mobility following a fall 1 year ago. She denies any history of cardiac catheterization or stress testing.
-Will consider repeating echocardiogram. Prior echo from 2011 with preserved EF and no significant valvular disease.
-Her blood pressure stable/improved following transfusions. Continue to follow. Not on any antihypertensive medications as outpatient.
-Prior carotid ultrasound from 2011 showed no evidence for hemodynamically significant internal carotid artery stenosis greater than 50% bilaterally.
HPI: Starr is a 64-year-old female with past medical history of hyperlipidemia and vasovagal syncope. She presented to ER for evaluation of vaginal bleeding. Heavy bleeding was noted in the ER and she was given TXA. Her hemoglobin dropped
from 12-9.7 in 1 hour. She was given 2 units PRBCs and was taken urgently for hysteroscopy D&C. Pathology concerning for possible endometrial adenocarcinoma. Plan is for tentative LARRY/BSO in AM. Cardiology consulted for preop evaluation.
Patient denies any significant coronary history. She states her only prior cardiac testing was in 2011 when she had a echocardiogram and carotid ultrasound. She has no history of chest pain or shortness of breath. EKG 11/09/2023 sinus rhythm with
no acute ischemic changes noted. She is asymptomatic currently, seen in PACU post procedurally.
Data Reviewed
-
EKG: Tracing Personally Visualized and interpreted
Labs: Labs Reviewed by me
Old Records: Reviewed
[2023-11-09 16:55] LABS: Hematocrit 32.7 % (37.0-47.0); Hemoglobin 11.2 g/dL (12.0-16.0)
[2023-11-09 17:17] LABS: Blood Urea Nitrogen 11 mg/dl (7-17); Calcium 9.2 mg/dl (8.4-10.2); Carbon Dioxide 19 mmol/L (22-30); Chloride 110 mmol/L (98-107); Estimated Creatinine Clearance > 125 ml/min; Glucose 179 mg/dl (70-99); Potassium 4.2 mmol/L (3.5-5.1); Sodium 137 mmol/L (135-145); eGFR > 60.00
--- NOTE | 2023-11-09 17:22 | TRANSFER ---
Pt came to [facility] via bed from pacu, pt statted her glasses were last in ED and earings were put in a blup container in pacu and did not come to the unit with her.
--- NOTE | 2023-11-09 20:16 | W.PN.GYNONC ---
Today's Communication
-
na
Impression / Plan
-
1 endometrial cancer- discuss with patient results of d&c and the initial treatment for endometrial CA is hysterectomy. Discussed with patient the procedure of a robotic Assisted LARRY- BSO with sentinel node biopsy and possible mini lap for removal
of uterus, The plan is to preform this tomorrow. Did answer questions but would return in the morning to answer more questions and to sign consent.
2 Anemia
Subjective / Interval History
-
63 yr old white female admitted for heavy vaginal bleeding Patient states she has been bleeding for awhile was seen in [facility] ER on 10/22/23 for vaginal bleeding and U/S showed thickened endometrial lining and was told to follow up outpatient. She is
currently at [facility] and was told she did have an upcoming appointment, but today the bleeding become very heavy and she was feeling faint and thinks she did pass out and was taken to the ER. Denies any pain just mild cramping. She did
receive blood in the ER and continued in the OR where a Hysteroscopy D & C was preformed for frozen section and to help control bleeding
PMH- back injury from fall
2 vaginal deliveries
denies any surgery
Family hx - sister with breast and uterine CA
Physical Exam
Vital Signs / I&O
Vitals
Temp Pulse Resp BP Pulse Ox
97.8 F 79 18 113/66 97
11/09/23 17:19 11/09/23 17:19 11/09/23 17:19 11/09/23 17:19 11/09/23 17:19
Physical Exam
Alert and oriented x3
abdomen soft nontender
extremities with compression pumps on
Respiratory: Clear
Data Reviewed
-
Ultrasound: Discussed with Physician
Lab Data: Labs Reviewed
--- NOTE | 2023-11-09 22:56 | W.PN.OBG.DWH ---
Today's Communication / Plan
-
NPO after midnight in prep for robotic TLH BSO and sentinel node bx. Discussed possible minilaparotomy if needed.
Pt agrees with plan.
Assessment/Plan
-
1.Postop s/p hysteroscopy D&C
2. Endometrial Adenocarcinoma on frozen section-reviewed with Starr. Discussed next step is Robotic TLH BSO and sentinel node biopsy which is planned tomorrow with sales and merchandising associate oncologist Dr. Woods.
-I reviewed the procedure briefly. Consent will be signed with sales and merchandising associate onc tomorrow.
3. Anemia secondary to blood loss from hemorrhage/malignancy. S/P 2 Units PRBCs. Has [address] Green in
4. Appreciate cardiology eval/consult for preop clearance.
-NPO after midnight
-SCDs in place.
Subjective Data
-
Went to check in on Starr.
Watching TV. Feeling well.
No dizziness or lightheadedness, CP or SOB.
Objective Data
-
Vital Signs
Temp Pulse Resp BP Pulse Ox
97.5 F 88 18 127/67 97
11/09/23 19:25 11/09/23 19:25 11/09/23 19:25 11/09/23 19:25 11/09/23 19:25
VSS afeb
abd: soft NDNT
no beeding through packing, pad dry
ext: no calf pain, SCDs on
[2023-11-10] VITALS (10 sets, daily range): BP systolic 113–142; BP diastolic 53–70
[2023-11-10 00:38] LABS: Blood Urea Nitrogen 8 mg/dl (7-17); Calcium 9.7 mg/dl (8.4-10.2); Carbon Dioxide 18 mmol/L (22-30); Chloride 113 mmol/L (98-107); Estimated Creatinine Clearance > 125 ml/min; Glucose 180 mg/dl (70-99); Potassium 4.2 mmol/L (3.5-5.1); Sodium 137 mmol/L (135-145); eGFR > 60.00
[2023-11-10 00:46] LABS: Hematocrit 29.8 % (37.0-47.0); Hemoglobin 10.5 g/dL (12.0-16.0)
[2023-11-10] MEDS: NSS 1000 IV ×3 (01:24→22:45)
[2023-11-10 07:59] LABS: % Basophils 0.1 % (0-2); % Immature Granulocytes 0.4 % (0-0.5); % Lymphocytes 7.5 % (20.5-51.1); % Monocytes 4.7 % (1.7-9.3); % Neutrophils 87.3 % (42.2-75.2); Absolute Immature Granulocytes 0.1 10^3/uL (0-0.05); Absolute Lymphocytes 0.9 10^3/uL (1.2-3.4); Absolute Monocytes 0.6 10^3/uL (0.1-0.6); Absolute Neutrophils 10.5 10^3/uL (1.4-6.5); Hematocrit 26.9 % (37.0-47.0); Hemoglobin 9.1 g/dL (12.0-16.0); Mean Corp Hgb Conc. 33.8 g/dL (33.0-37.0); Mean Corpuscular Hgb 29.6 pg (27.0-31.0); Mean Corpuscular Volume 87.6 fL (81.0-99.0); Mean Platelet Volume 11.6 fL (7.4-10.4); Nucleated Red Blood Cells % 0 %; Platelet Count 177 10^3/uL (130-400); Red Blood Cell Count 3.07 10^6/uL (4.20-5.40); Red Cell Dist. Width 15.2 % (11.5-14.5)
[2023-11-10 08:39] LABS: Blood Urea Nitrogen 6 mg/dl (7-17); Carbon Dioxide 18 mmol/L (22-30); Chloride 114 mmol/L (98-107); Estimated Creatinine Clearance > 125 ml/min; Potassium 3.9 mmol/L (3.5-5.1); Sodium 139 mmol/L (135-145)
[2023-11-10] MEDS: LIPITOR PO (11:23)
--- NOTE | 2023-11-10 13:04 | W.PN.GYNONC ---
Today's Communication
-
See above
Impression / Plan
-
She has a new diagnosis of endometrial cancer-she has had at least 2 g of decrease in her hemoglobin secondary to acute bleeding for which she was admitted overnight. Hemoglobin today is 9. i have Discuss with patient results of d&c and the
initial treatment for endometrial CA is hysterectomy. Discussed with patient the procedure of a robotic Assisted LARRY- BSO with sentinel node biopsy and possible mini lap for removal of uterus,
Risk of surgery including infection bleeding injury to adjacent organs DVT pulmonary embolism and cardiovascular complications were discussed and reviewed.
Patient understand that postoperatively once pathology is completed she may require additional adjuvant treatment.
I appreciate cardiac evaluation and recommendations noted above
This patient has significant comorbidities and I have requested transfer to hospitalist service as she will require likely postoperative care prior to return back to her facility
I do recommend physical therapy evaluation
Etiology of her nonambulatory status is unclear, she may benefit from physical medicine rehabilitation input
Subjective / Interval History
-
63-year-old woman presented to the emergency department with vaginal bleeding, underwent D&C yesterday and preliminary diagnosis is endometrial cancer. She does not report any significant medical problems, she had a fall last year, she has had a
fracture of her left fibula in 2011, she does not have cardiac symptoms but is wheelchair-bound
Allergies: Cephalosporins, erythromycin, sulfa
Outpatient meds: Acetaminophen, aspirin 81 mg a day, vitamin B12 and atorvastatin 10 mg a day
PMH: Hypertension, hypercholesterolemia, ambulatory dysfunction, unspecified atherosclerotic cardiovascular disease,Class III obesity, long history of vasovagal syncope, nonspecific brain MRI abnormalities left hemisphere 2011
SH has severe ambulatory dysfunction, is wheelchair-bound, lives in [place] with her . 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
Tobacco: Lifelong non-smoker
Alcohol: None
ROS: Negative except as above
92/65, Weight 104 kg, pulse 72, patient seen in PACU sedated, communicative, offers no complaints, head neck exam unremarkable, lungs are clear regular rate and rhythm without obvious murmurs or gallops
EKG: Sinus rhythm, left axis
Hemoglobin 12.3 earlier this morning, has received 2 units of packed cells, BUN and creatinine 12 and 0.5, chloride 108 glucose 130
Objective Data
-
Lab Results:
11/10/23 07:25
11/10/23 07:25
Exams: CT Chest/abd/pel W Iv Cont
Examination: CT of the chest, abdomen and pelvis with IV contrast
SCANNING PARAMETERS: CT of the chest, abdomen and pelvis with intravenous contrast material was obtained. Automated exposure control was used.
INDICATION: Endometrial carcinoma. Evaluate for metastatic disease.
COMPARISON EXAMINATION: None
FINDINGS:
There are no abnormal pleural or parenchymal pulmonary masses.
There is mild bibasilar consolidation, right greater than left. This probably due to atelectasis.
There is no pleural effusion.
There are no abnormal mediastinal masses.
There is no hilar lymphadenopathy.
There is no mediastinal lymphadenopathy.
There is no axillary lymphadenopathy.
Abdomen and pelvis: The liver, spleen, gallbladder and pancreas are unremarkable. The adrenal glands and kidneys are unremarkable. The abdominal aorta is normal caliber. No significant lymphadenopathy is noted. Bowel loops are normal caliber. The
terminal ileum and appendix are within normal limits.
No free fluid is noted.
There are several calcified uterine masses consistent with fibroids. The largest measures approximately 5 cm.
There is a somewhat rectangular radiopaque foreign body probably in the vagina with what appears to be fecal material. However, this may represent packing, hemorrhagic products or abnormality of the endometrium. The radiopaque structure is seen best
on 91 through 97.
There is a Green catheter present in the bladder which is only mildly distended. There is air in the bladder likely due to recent instrumentation. There is moderate bladder wall thickening.
IMPRESSION: No evidence of metastatic disease of the chest, abdomen or pelvis.
Mild bibasilar consolidation probably atelectasis.
Calcified uterine fibroids.
Possible hemorrhagic products, packing material and foreign body in the vagina. Fecal material not excluded. If fecal material, a rectovaginal fistula should be considered. Clinical correlation recommended
Mild diffuse bladder wall thickening concerning for cystitis versus bladder outlet obstruction.
Electronically signed by Arianna Xie DO , 11/09/2023 10:29 PM
Physical Exam
Vital Signs / I&O
Vitals
Temp Pulse Resp BP Pulse Ox
98.3 F 87 17 113/55 95
11/10/23 11:20 11/10/23 11:20 11/10/23 11:20 11/10/23 11:20 11/10/23 11:20
I&O
11/08/23 11/09/23 11/10/23 11/11/23
06:59 06:59 06:59 06:59
Intake Total 1840 / 1840
Output Total 3550 / 3550
Balance -1710 / -1710
Physical Exam
General: Well Developed, Well Nourished and No Apparent Distress
HEENT: Normocephalic
Respiratory: Clear
Cardiac: S1/S2 and Regular Rhythm
GI: Soft, Non Tender and Non Distended
Genito-urinary: Costovertebral Angle Tend
Musculoskeletal: No Clubbing, No Cyanosis and No Edema
Hematologic/Lymphatic: No Lymphadenopathy
Psych: Calm and Intact Judgement
[2023-11-10 14:03] LABS: ALT (SGPT) 13 U/L (0-35); AST (SGOT) 17 U/L (14-36); Albumin 2.9 g/dl (3.5-5.0); Alkaline Phosphatase 58 U/L (38-126); Iron 58 ug/dl (37-170); Total Bilirubin 0.4 mg/dl (0.2-1.3); Total Protein 5.1 g/dl (6.3-8.2)
[2023-11-10] MEDS: HEPARIN 5000 UNITS SC (14:10)
[2023-11-10 14:13] LABS: Percent Saturation 27 % (20-50); Total Iron Binding Capacity 211 ug/dl (265-497)
[2023-11-10 14:35] LABS: CA 125 35.4 U/mL (0-35)
[2023-11-10 15:09] LABS: Folate > 20.0 ng/ml (2.76-20); Vitamin B12 780 pg/ml (239-931)
--- NOTE | 2023-11-10 16:18 | CM ---
Met with pt at bedside
Pt reports she is a LT resident at [facility]. Her is also a resident
She is non-ambulatory and needs assist with adl's
Confirmed with Tamika at [facility] - pt is LTR
PCP - Dr Tucker
Pharm - [facility]
Plan - anticipate return to [facility] when medically ready
--- NOTE | 2023-11-10 16:51 | CON.HOSP ---
Family Physician
-
Family Physician: Luis Eduardo Yusuf
Chief Complaint
-
Status post D&C, robotic LARRY-BSO , anemia with menopausal bleeding
History of Present Illness
63-year-old female from [facility] who was seen in the ER on 11/09/2023 for sudden onset of heavy postmenopausal bleeding with clots causing vasovagal syncope. She did report to [facility] that she has had vaginal bleeding over the past few
weeks but increased over the past 4 days with clots at times. Ultrasound showed uterus with several fibroids thickened endometrial stripe. She had D&C yesterday showing endometrial cancer She is s/p robotic assisted LARRY�BSO by [facility] ONC stable
uncomplicated surgery Per Dr Lagos. Her current hemoglobin today is 9.1. She did receive 2 units packed RBCs yesterday 11/09/2023. Patient is past medical history of HTN, HLD, chronic ambulatory dysfunction, class III obesity, CAD, vasovagal
syncope, nonspecific brain MRI abnormalities 08/26/2011.
Medical History
Past Medical History
Past Medical History: Reports Other
Additional Past Medical History:
HTN
HLD
chronic ambulatory dysfunction bedbound unclear
class III obesity
CAD
vasovagal syncope
nonspecific brain MRI abnormalities 08/26/2011
Past Surgical History: Reports Other
Additional Past Surgical History:
D&C 11/09/2023
Social History
Tobacco: Non-smoker
Alcohol: None
Drug: None
Personal:
Living: Snf ([facility] lives with her and is wheelchair-bound)
Employment: Disabled
Family History
Family History: Other (Sister breast and uterine cancer on tamoxifen, mother and sister history of uterine fibroids and hysterectomy)
Allergies / Home Medications
Allergies reflects when Allergies were last updated in [facility].
Home Medications with original date entered in [facility]
Allergy/Medication List:
Allergies
Allergy/AdvReac Type Severity Reaction Status Date / Time
cefuroxime [From Ceftin] Allergy Unknown Verified 11/09/23 10:30
erythromycin base Allergy Unknown Verified 11/09/23 10:30
Sulfa (Sulfonamide Allergy Unknown Verified 11/09/23 10:30
Antibiotics)
Home Medications
acetaminophen 325 mg tablet 650 mg PO Q4H PRN temp>100F 10/22/23
acetaminophen 325 mg tablet 650 mg PO Q6HPRN PRN mild pain 10/22/23
aspirin 81 mg tablet,delayed release 81 mg PO DAILY Blood Clot Prevention/Tx 10/22/23
atorvastatin 10 mg tablet 10 mg PO DAILY High Cholesterol 10/22/23
cyanocobalamin (vitamin B-12) 1,000 mcg tablet (Vitamin B-12) 1,000 mcg PO DAILY Supplement 10/22/23
Review of Systems
-
History Source: Physician ([facility] Super[facility] onc ) and Other (nursing )
A 12 point Review of Systems was completed except as noted: Yes
Constitutional: Denies Fever
Respiratory: Denies Cough
Cardiac: Denies Diaphoresis
Abdomen/GI: Denies Vomiting or Diarrhea
Musculoskeletal: Denies Edema
Skin: Denies Itching
Psych: Reports Calm
Physical Exam
Vital Signs
Vital Signs
Temp Pulse Resp BP Pulse Ox
98.3 F 87 17 113/55 95
11/10/23 11:20 11/10/23 11:20 11/10/23 11:20 11/10/23 11:20 11/10/23 11:20
Physical Exam
General: No Apparent Distress and Other (Patient is in PACU still sedated post surgery is starting to wake up move arms and pull mask off)
Respiratory: Clear; Negative Wheezes, Rales or Rhonchi
Cardiac: S1/S2 and Regular Rhythm
Breast: Deferred by me
GI: Soft, Normal Bowel Sounds and Other (Multiple horizontal laparoscopic incisions with Dermabond in place abdomen soft)
Musculoskeletal: No Clubbing, No Cyanosis and No Edema
Skin: Warm and Dry
Neuro: Other (Patient is in PACU still sedated post surgery is starting to wake up move arms and pull mask off)
Psych: Calm
Laboratory Results
-
Laboratory Results
11/10/23 07:25
11/10/23 07:25
PT 13.1 Sec (11.4-14.6) 11/09/23 10:37
INR 1.01 11/09/23 10:37
APTT 31.4 Sec (23.4-35.0) 11/09/23 10:37
Total Bilirubin 0.4 mg/dl (0.2-1.3) 11/10/23 00:10
AST 17 U/L (14-36) 11/10/23 00:10
ALT 13 U/L (0-35) 11/10/23 00:10
Alkaline Phosphatase 58 U/L (38-126) 11/10/23 00:10
Impression / Plan
-
Transfer patient from [facility] service to internal medicine
Admit to [facility]
#Anemia secondary to postmenopausal bleeding
Hgb 11.2> 9.1
Iron panel normal, B12 normal
-Type and screen obtained
-Patient is status post PRBC 2 units yesterday 11/09/2023
- Repeat Hgb 10 PM if less than 7 will transfuse additional 1 unit PRBC
-Hold aspirin 81 mg daily
-Continue B12 1000 mcg daily
#Endometrial cancer per D&C 11/09/2023
-S/P Robotic assisted LARRY�BSO with sentinel node biopsy by ST[facility]ER Onc Dr. Lagos 11/10/23
-discussed with Dr Lagos
-may resume 1800 Ada diet
- tylenol / motrin scheduled x3 days
#Leukocytosis likely 2/2 to UTi Ecoli with bladder wall thickening
-WBC 12 with left shift, afebrile, nontoxic-appearing
-Green catheter removed today by [facility] oncology
-Urine culture growing E. coli
-Will start on IV cefepime q12h has tolerated Keflex in the past
-Follow CBC,
#Hyperglycemia
BS 180,
- HgbA1c
#HTN�benign
-BP 113/55
No reported BP meds
#HLD
-cont statin 10 mg daily
#Chronic ambulatory dysfunction-chronic nonambulatory
History left fibula fracture 2011
#Class III obesity-BMI 33.2 kg
-Weight loss recommended low fat diet when able to resume post surgery
#Hx vasovagal syncope
#History of nonspecific brain MRI abnormalities (08/26/2011)
DVT prophylaxis
Lovenox sq
Full code
--- NOTE | 2023-11-10 18:34 | OR.RPT ---
Operative Report
Operative Report
Preoperative diagnosis: Endometrial cancer, acute blood loss anemia
Postoperative diagnosis same
Procedure:
Robotic assisted total laparoscopic hysterectomy bilateral salpingo-oophorectomy [id number]
Mini laparotomy for extraction of specimen
Injection of cervix with ICG dye, bilateral for mapping and identification of sentinel lymph [id number]
Laparoscopic bilateral pelvic lymph sentinel lymphadenectomy [id number]
Tap block
Surgeon: Rajinder Lagos
Assist: Adolph Sims PA-C, MIGUEL ANGEL May
Anesthesia General endotracheal intubation
Estimated blood loss: 100 cc
Complication: None
Indication for surgery this is a 62-year-old white female who presented through the emergency room yesterday with acute bleeding, the patient has had over a month of vaginal bleeding. She was urgently taken to the operating room for exam under
anesthesia dilation and curettage and a frozen section of endometrium revealed endometrial cancer, she had received 2 units of blood overnight and had serial hemoglobin, this morning hemoglobin was 9. Decision was made to proceed with surgery today
for definitive management due to acute blood loss
Procedure in detail: This patient was taken to the operating room, placed in supine position, general anesthesia was administered. She was intubated without any difficulty, she was placed in lithotomy position using yellowfin stirrups and prepped
on the abdomen Martín vagina. Arms were wrapped and tucked along the sides. Green catheter that was existing was removed, vaginal packing which was soaked with blood were removed. Vaginal prep abdominal prep and perineal prep was performed.
Under sterile conditions Green catheter was placed in the bladder. Anterior lip of the cervix was grasped with single-tooth tenaculum. A total of 4 cc ICG dye divided at 3 and 9:00 locations were injected at 5 mm and 10 mm in stations. Uterine
manipulator sonoscope operator type a 3.5 cm SAGE ring was placed in the uterus and vaginal occluder was insufflated. Attention was turned abdominally. After timeout procedure had been completed Veress needle was inserted through the umbilicus into the
peritoneal cavity and the abdomen was insufflated with CO2 gas up to pressure of 15 mmHg. Next 8 mm robotic ports were placed at 25 cm cephalad to symphysis pubis along the midline and epigastrium and right upper quadrant and left upper quadrant
and left lateral abdomen. 12 mm air seal port was placed in the right lower quadrant. Inspection of the upper abdomen reveals diaphragms liver stomach omentum right and left paracolic gutters to be within normal limits. The uterus is enlarged
with multiple leiomyoma there is filmy adhesions around the left tube and ovary right tube and ovary and also posterior cul-de-sac. There was suggestion of an inflammatory process in the pelvis. Washings were collected and submitted to pathology.
The patient was placed in deep Trendelenburg and robotic system was docked. Used the vessel sealer to seal and divide right and left round ligaments, anterior and posterior leaves of the broad ligament were dissected open. Paravesical and
pararectal spaces were dissected open. The course of the ureter was identified bilaterally and the retroperitoneum and IP ligaments were isolated. Both IP ligaments were sealed 3 times and divided, bladder flap was sharply developed and advanced
below the cervical vaginal junction. We explored the retroperitoneum using near infrared lighting and identified the right and left obturator sentinel lymph nodes which were excised and submitted to pathology in addition there was a right sided
external iliac sentinel lymph node which was excised. Remainder of the lymph nodes in the pelvis up to mid common iliac did not look enlarged or suspicious. We sealed and divided uterine and parametrial vessels on the right and left sides,
circumferential incision was made over the SAGE ring until the uterus was fully detached. The uterus was placed in a large endoscopic bag and prepared for future retrieval as it was not able to be extracted through the vagina. The vaginal apex was
closed with 0 Vicryl in a jycirt-gy-eghgh fashion incorporating uterosacral ligaments for support on both sides. Strata fix suture spiral type was used to close the cuff starting from the right side and then coming back in a second layer. We
irrigated the pelvis copiously and good hemostasis was present. We used a Femi-Jennifer system to close the 12 mm port site in the right lower quadrant. We went ahead and removed all laparoscopic instruments. An 8 cm transverse incision was
made in the suprapubic area and a fan in sterile fashion, the rectus muscle was and peritoneum was entered. The uterus cervix bilateral tubes and ovaries and a large bag was removed through this space. After removal the fascia was closed
with a 0 PDS strata fix suture starting from right side coming to the left and a second layer going back. Excellent fascial closure was present. Subcutaneous tissue was closed with 3-0 Monocryl suture. The port sites as well as the extraction
site was closed with 4 Monocryl in a subcuticular fashion. Green catheter was removed. The vagina was inspected and there was no lacerations or bleeding. Patient was awakened and extubated and returned back to recovery room stable awake and
extubated condition. Counts of laps instruments and needle was correct x 2. I was present and scrubbed for entire procedure as dictated above.
Disposition: PACU, stable awake extubated
--- NOTE | 2023-11-10 19:42 | W.PN.UPDATE ---
Update Note
Progress Note Update
This is an addendum to the consult note written by Adri Richardson on 11/10/2023.
63-year-old female past medical history of CAD, hypertension, hyperlipidemia, chronic ambulatory dysfunction bedbound, obesity, very vasovagal syncope here for heavy postmenopausal bleeding with clots status post D&C status post biopsy revealing
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
Hold aspirin.� Recheck hemoglobin and transfuse as necessary.
Labs show leukocytosis.� Bladder wall thickening noted in OR.� Urinalysis showing infection.� Urine culture grew E. coli, Streptococcus species.� Cefepime started.
[2023-11-10] MEDS: LOVENOX 40 MG SC (20:06)
[2023-11-10] MEDS: MAXIPIME 1000 MG IV (20:07)
[2023-11-10] MEDS: STERILE WATER FOR INJECTION 10 ML IV (20:07)
[2023-11-10 21:48] LABS: % Basophils 0.1 % (0-2); % Immature Granulocytes 0.5 % (0-0.5); % Lymphocytes 5.1 % (20.5-51.1); % Monocytes 4.6 % (1.7-9.3); % Neutrophils 89.7 % (42.2-75.2); Absolute Immature Granulocytes 0.1 10^3/uL (0-0.05); Absolute Lymphocytes 0.7 10^3/uL (1.2-3.4); Absolute Monocytes 0.7 10^3/uL (0.1-0.6); Absolute Neutrophils 12.8 10^3/uL (1.4-6.5); Hematocrit 25.4 % (37.0-47.0); Hemoglobin 8.9 g/dL (12.0-16.0); Mean Corpuscular Hgb 30.3 pg (27.0-31.0); Mean Corpuscular Volume 86.4 fL (81.0-99.0); Nucleated Red Blood Cells % 0 %; Platelet Count 160 10^3/uL (130-400); Red Blood Cell Count 2.94 10^6/uL (4.20-5.40); Red Cell Dist. Width 15.6 % (11.5-14.5); White Blood Cell Count 14.2 10^3/uL (4.8-10.8)
[2023-11-10] MEDS: TYLENOL 650 MG PO (22:44)
[2023-11-11 03:47] VITALS: BP 121/65
[2023-11-11] MEDS: TYLENOL 650 MG PO ×2 (06:21→18:13)
--- NOTE | 2023-11-11 07:49 | W.PN.GYNONC ---
Today's Communication
-
N/A
Impression / Plan
-
She has a new diagnosis of endometrial cancer-she has had at least 2 g of decrease in her hemoglobin secondary to acute bleeding for which she was admitted overnight. Hemoglobin today is 9. i have Discuss with patient results of d&c and the
initial treatment for endometrial CA is hysterectomy. Discussed with patient the procedure of a robotic Assisted LARRY- BSO with sentinel node biopsy and possible mini lap for removal of uterus,
Risk of surgery including infection bleeding injury to adjacent organs DVT pulmonary embolism and cardiovascular complications were discussed and reviewed.
Patient understand that postoperatively once pathology is completed she may require additional adjuvant treatment.
I appreciate cardiac evaluation and recommendations noted above
This patient has significant comorbidities and I have requested transfer to hospitalist service as she will require likely postoperative care prior to return back to her facility
I do recommend physical therapy evaluation
Etiology of her nonambulatory status is unclear, she may benefit from physical medicine rehabilitation input
POD 1- 6/5- S/P Robotic TLH BSO and staging for endometrial CA- recovering well
path and morning labs still pending
Subjective / Interval History
-
POD 1- s/p robotic assisted total hysterectomy bso staging and mini lap
No complaints
pain 3 to 10 controlled with Tylenol
Objective Data
-
Lab Results:
11/10/23 21:42
11/10/23 07:25
Physical Exam
Vital Signs / I&O
Vitals
Temp Pulse Resp BP Pulse Ox
98.3 F 77 16 121/65 98
11/11/23 03:47 11/11/23 03:47 11/11/23 03:47 11/11/23 03:47 11/11/23 03:47
I&O
11/09/23 11/10/23 11/11/23 11/12/23
06:59 06:59 06:59 06:59
Intake Total 1840 / 1840 75 / 75
Output Total 3550 / 3550 750 / 750
Balance -1710 / -1710 -675 / -675
Physical Exam
VSS
lungs clear
abdomen soft incision healing well
extremities- no swelling pumps still on
Cardiac: Regular Rhythm
[2023-11-11 08:07] VITALS: BP 126/61
[2023-11-11] MEDS: LIPITOR 10 MG PO (08:56)
[2023-11-11] MEDS: STERILE WATER FOR INJECTION 10 ML IV (08:59)
[2023-11-11] MEDS: MAXIPIME 1000 MG IV (08:59)
[2023-11-11] MEDS: MOTRIN 600 MG PO ×2 (09:02→23:24)
[2023-11-11 09:09] LABS: Glycohemoglobin (HgbA1c) 5.8 % (4.0-5.6); TSH Reflex To Free T4 0.07 uIU/ml (0.47-4.68)
[2023-11-11 09:38] LABS: Free T4 1.48 ng/dl (0.78-2.19)
[2023-11-11 10:45] VITALS: BP 134/59
--- NOTE | 2023-11-11 12:48 | W.PN.HOSP.TC ---
Today's Communication/Plan
-
consult ID for ESBL E. coli
otherwise no active medical issues
post op care per [facility]CRA[facility]ICER onc--path pending
Assessment / Plan
Assessment / Plan
pt is a 63 year old female
Anemia secondary to postmenopausal bleeding from endometrial cancer--s/p 2 units pRBC 11/09/23--HGB stable--Iron panel normal, B12 normal--Hold aspirin 81 mg daily--Continue B12 1000 mcg daily
Endometrial cancer per D&C 11/09/2023--S/P Robotic assisted LARRY�BSO with sentinel node biopsy by [facility] Onc Dr. Lagos 11/10/23--tylenol/motrin scheduled x3 days
Leukocytosis likely due to UTI Ecoli --ESBL--WBC 12 with left shift, afebrile, nontoxic-appearing--Green catheter removed 11/09 by [facility]CRA[facility] oncology--Will start on IV cefepime q12h has tolerated Keflex in the past--consult ID
Hyperglycemia--likely not significant--HGB A1C 5.8
Essential HTN�benign--No BP meds
HLD--cont statin 10 mg daily
Chronic ambulatory dysfunction-chronic nonambulatory--History left fibula fracture 2011--from [facility]
Class III obesity--BMI 33.2 kg--affects all aspects of care
Hx vasovagal syncope/History of nonspecific brain MRI abnormalities (08/26/2011)--not active
DVT prophylaxis--Lovenox sq
Code Status --Full code
Anticipated Discharge: 24 - 48 hours
Subjective/Interval History
-
Date of Service: November 11, 2023
pt s/p surgery--no c/o
Objective Data
-
Vital Signs:
max temp for 24 hours
11/11/23
10:45
Temp 98.3 F
Vital Signs
Temp Pulse Resp BP Pulse Ox
98.3 F 83 16 134/59 96
11/11/23 10:45 11/11/23 10:45 11/11/23 10:45 11/11/23 10:45 11/11/23 10:45
I&O
11/10/23 11/11/23 11/12/23
06:59 06:59 06:59
Intake Total 1840 / 1840 75 / 75
Output Total 3550 / 3550 750 / 750
Balance -1710 / -1710 -675 / -675
Review of Systems
-
All other systems: Reviewed and negative
Physical Exam
-
General: Well Developed, Well Nourished and No Apparent Distress
HEENT: Normocephalic and Atraumatic
Respiratory: Clear to Auscultation; Negative Wheezes or Rhonchi
Cardiac: Regular Rhythm and S1/S2; Negative Murmur
GI: Soft, Nontender, Nondistended and Normal Bowel Sounds
Musculoskeletal: No Clubbing, No Cyanosis and No Edema
Psych: Calm
--- NOTE | 2023-11-11 14:37 | CON.ID ---
Consultation
-
Date/Time Consultation Requested: November 11, 2023 1305
Date/Time Consultation Performed: November 11, 2023 1440
Requesting Provider: Dr. Alissa Workman
Performing Provider: Dr. Sara aJckson
Reason for Consultation: ESBL
Chief Complaint / Past History
Chief Complaint
Vaginal bleeding
History of Present Illness
63-year-old female from [facility] with history of ambulatory dysfunction/bedbound, CAD, class III obesity who developed significant abnormal postmenopausal bleeding to the point that she almost passed out. She came to the ER on November 08. She
was noted to be anemic and received packed red blood cell transfusion. She was taken to the OR D&C and noted large amount of clots and the uterus, some tissue visualized concerning for malignancy. Next day she underwent robotic LARRY and BSO. Path
pending. At the time of OR, Green catheter was placed and noted to have cloudy urine and therefore sample was sent for culture which came back positive for ESBL E. coli and Streptococcus species. Patient reports history of UTI. She was here May
16 with severe dysuria received a dose of fosfomycin for ESBL E. coli recovered from the urine. Her symptoms resolved at the time. With this admission, she reports mild urine urgency. No dysuria. No flank pain. No fevers or chills.
Past History
Additional Past Medical History:
HTN
HLD
chronic ambulatory dysfunction bedbound
Obesity BMI 33
CAD
SNF resident
Allergy History:
cefuroxime [From Ceftin] Allergy (Verified 11/09/23 10:30)
Unknown
erythromycin base Allergy (Verified 11/09/23 10:30)
Unknown
Sulfa (Sulfonamide Antibiotics) Allergy (Verified 11/09/23 10:30)
Unknown
Medications Reviewed: Yes
Current Antibiotics:
Cefepime day 2
Social History
Tobacco: Non-Smoker
Alcohol: None
Drug: None
Personal:
Living: Alf
Family History
Family History: Not Pertinent
Review of Systems
Review of Systems
General: Negative Fever, Chills or Change in Appetite
HEENT: Negative Headache or Pharyngitis
Respiratory: Negative Dyspnea
Gasteroenterology: Negative Nausea or Vomiting
Genital / Urological: Negative Flank Pain
Vital Signs
Temp Pulse Resp BP Pulse Ox
98.3 F 83 16 134/59 96
11/11/23 10:45 11/11/23 10:45 11/11/23 10:45 11/11/23 10:45 11/11/23 10:45
Physical Exam
Physical Exam
Constitutional: No Acute Distress and Comfortable
Eyes: No Conjunctival Hemorrhage and Sclera Anicteric
Cardiovascular: Regular Rate and S1/S2
Pulmonary: Clear
Gastrointestinal: Soft, Non Tender and Non Distended
Genito-Urinary: CVA Tenderness
Extremities: Negative Edema
Neurological: AO x 3
Lab / Diagnostic Study Results
11/10/23 21:42
11/10/23 07:25
Abs Immat Gran (auto) 0.1 10^3/uL (0-0.05) H 11/10/23 21:42
Absolute Neuts (auto) 12.8 10^3/uL (1.4-6.5) H 11/10/23 21:42
Absolute Lymphs (auto) 0.7 10^3/uL (1.2-3.4) L 11/10/23 21:42
Absolute Monos (auto) 0.7 10^3/uL (0.1-0.6) H 11/10/23 21:42
Absolute Basos (auto) 0.0 10^3/uL (0-0.2) 11/10/23 21:42
Immature Gran % 0.5 % (0-0.5) 11/10/23 21:42
Neutrophils % 89.7 % (42.2-75.2) H 11/10/23 21:42
Lymphocytes % 5.1 % (20.5-51.1) L 11/10/23 21:42
Monocytes % 4.6 % (1.7-9.3) 11/10/23 21:42
Eosinophils % 0.0 % (0-6) 11/10/23 21:42
Basophils % 0.1 % (0-2) 11/10/23 21:42
PT 13.1 Sec (11.4-14.6) 11/09/23 10:37
INR 1.01 11/09/23 10:37
Microbiology Results
Micro:
11/09/23 13:12 Urine Culture - Final
Urine Escherichia coli - ESBL
Streptococcus species
11/10/23 CT c/a/p: No evidence of metastatic disease of the chest, abdomen or pelvis. Mild bibasilar consolidation probably atelectasis. Possible hemorrhagic products, packing material and foreign body in the vagina. Fecal material not excluded. If
fecal material, a rectovaginal fistula should be considered. Clinical correlation recommended. Mild diffuse bladder wall thickening concerning for cystitis versus bladder outlet obstruction.
Assessment / Plan
# ESBL-E coli uncomplicated cystitis
-DC cefepime
- Ordered 1 dose of fosfomycin po
# Endometrial ca/postmenopausal bleeding
- s/p D&C 11/09/23
-s/p LARRY, BSO 11/10/23
# Leukocytosis
- Received steroid 11/09
ID will sign off
[2023-11-11 14:54] VITALS: BP 129/53
--- NOTE | 2023-11-11 15:02 | CM ---
Addendum entered by Ade Oscar 11/11/23 15:19:
CM will send updated clinicals in All [facility].
Original Note:
Patient seen at bedside with physicain earlier and again this afternoon with daughter to confirm that patient could return to SNF [facility] and patient indicated that she did not feel well enough to reuturn. CM updated nurse and physician.
[facility] updated. CM will continue to follow for discharge planning needs.
Plan; return to SNF tomorrow
--- NOTE | 2023-11-11 16:51 | W.PN.UPDATE ---
Update Note
Progress Note Update
patient s/p Robotic TLH BSO and staging for endometrial CA 11/10/23. BP/HR stable. no active cardiac issues. will plan to sign off, please call with questions.
[2023-11-11] MEDS: MONUROL 3 GM PO (17:51)
[2023-11-11] MEDS: LOVENOX 40 MG SC (17:51)
--- NOTE | 2023-11-11 19:34 | PTCARENOTE ---
Patients last BM was Thursday. Patient is refusing meds for constipation at present. Patient states, 'I do not feel constipated. I will order prunes for breakfast.'
[2023-11-11 23:35] VITALS: BP 114/53
[2023-11-12 07:00] VITALS: BP 144/69
--- NOTE | 2023-11-12 08:08 | W.PN.GYNONC ---
Today's Communication
-
able to be discharge
Impression / Plan
-
She has a new diagnosis of endometrial cancer-she has had at least 2 g of decrease in her hemoglobin secondary to acute bleeding for which she was admitted overnight. Hemoglobin today is 9. i have Discuss with patient results of d&c and the
initial treatment for endometrial CA is hysterectomy. Discussed with patient the procedure of a robotic Assisted LARRY- BSO with sentinel node biopsy and possible mini lap for removal of uterus,
Risk of surgery including infection bleeding injury to adjacent organs DVT pulmonary embolism and cardiovascular complications were discussed and reviewed.
Patient understand that postoperatively once pathology is completed she may require additional adjuvant treatment.
I appreciate cardiac evaluation and recommendations noted above
This patient has significant comorbidities and I have requested transfer to hospitalist service as she will require likely postoperative care prior to return back to her facility
I do recommend physical therapy evaluation
Etiology of her nonambulatory status is unclear, she may benefit from physical medicine rehabilitation input
POD 1- 6/5- S/P Robotic TLH BSO and staging for endometrial CA- recovering well
path and morning labs still pending
POD 2-6/6-
endometrial CA- recovering well able to be discharged, well need office follow up in 2 to 3 weeks for incision check and to review path.
Subjective / Interval History
-
pod 2- s/p robotic assisted laparoscopic total hysterectomy bso and mini lap
No complaints feeling better able to sleep and tolerating diet.
states ready for discharge today
Objective Data
-
Lab Results:
still pending
Physical Exam
Vital Signs / I&O
Vitals
Temp Pulse Resp BP Pulse Ox
98.3 F 85 18 114/53 96
11/11/23 23:35 11/11/23 23:35 11/11/23 23:35 11/11/23 23:35 11/11/23 23:35
I&O
11/10/23 11/11/23 11/12/23 06/07/24
06:59 06:59 06:59 06:59
Intake Total 1840 / 1840 75 / 75 480 / 480
Output Total 3550 / 3550 750 / 750
Balance -1710 / -1710 -675 / -675 480 / 480
Physical Exam
VSS
afebrile
abdomen soft nontender incisions feeling well
[2023-11-12 08:37] LABS: Hematocrit 24.1 % (37.0-47.0); Hemoglobin 7.9 g/dL (12.0-16.0); Mean Corp Hgb Conc. 32.8 g/dL (33.0-37.0); Mean Corpuscular Volume 91.6 fL (81.0-99.0); Mean Platelet Volume 12.1 fL (7.4-10.4); Platelet Count 148 10^3/uL (130-400); Red Blood Cell Count 2.63 10^6/uL (4.20-5.40); Red Cell Dist. Width 15.5 % (11.5-14.5)
[2023-11-12 09:06] LABS: Blood Urea Nitrogen 8 mg/dl (7-17); Calcium 8.8 mg/dl (8.4-10.2); Carbon Dioxide 25 mmol/L (22-30); Chloride 111 mmol/L (98-107); Estimated Creatinine Clearance > 125 ml/min; Glucose 92 mg/dl (70-99); Magnesium 2.1 mg/dl (1.6-2.3); Potassium 3.7 mmol/L (3.5-5.1); Sodium 140 mmol/L (135-145); eGFR > 60.00
[2023-11-12] MEDS: LIPITOR 10 MG PO (09:09)
--- NOTE | 2023-11-12 11:54 | W.PN.HOSP.TC ---
Today's Communication/Plan
-
d/c
Assessment / Plan
Assessment / Plan
pt is a 63 year old female
Anemia secondary to postmenopausal bleeding from endometrial cancer--s/p 2 units pRBC 11/09/23--Iron panel normal, B12 normal--Hold aspirin 81 mg daily--Continue B12 1000 mcg daily
Endometrial cancer per D&C 11/09/2023--S/P Robotic assisted LARRY�BSO with sentinel node biopsy by [facility] Onc Dr. Lagos 11/10/23--tylenol/motrin scheduled x3 days--unable to sit in wheelchair for return back
Leukocytosis likely due to UTI Ecoli --ESBL--WBC 12 with left shift, afebrile, nontoxic-appearing--Green catheter removed 11/09 by [facility] oncology--apprec ID--s/p fosfomycin
Hyperglycemia--likely not significant--HGB A1C 5.8
Essential HTN�benign--No BP meds
HLD--cont statin 10 mg daily
Chronic ambulatory dysfunction-chronic nonambulatory--History left fibula fracture 2011--from [facility]
Class III obesity--BMI 33.2 kg--affects all aspects of care
Hx vasovagal syncope/History of nonspecific brain MRI abnormalities (08/26/2011)--not active
DVT prophylaxis--Lovenox sq
Code Status --Full code
Anticipated Discharge: Today
Subjective/Interval History
-
Date of Service: November 12, 2023
pt ready to go back to facility
Objective Data
-
Labs:
Laboratory Results
11/12/23
07:31
WBC 6.0
Hgb 7.9 L
Hct 24.1 L
Plt Count 148
Sodium 140
Potassium 3.7
Chloride 111 H
Carbon Dioxide 25
BUN 8
Creatinine 0.5 L
Glucose 92
Calcium 8.8
Vital Signs:
max temp for 24 hours
11/11/23
23:35
Temp 98.3 F
Vital Signs
Temp Pulse Resp BP Pulse Ox
98.6 F 85 16 144/69 96
11/12/23 07:00 11/12/23 07:00 11/12/23 07:00 11/12/23 07:00 11/12/23 07:00
I&O
11/11/23 11/12/23 11/13/23
06:59 06:59 06:59
Intake Total 75 / 75 480 / 480
Output Total 750 / 750
Balance -675 / -675 480 / 480
Review of Systems
-
All other systems: Reviewed and negative
Physical Exam
-
General: Well Developed, Well Nourished and No Apparent Distress
HEENT: Normocephalic and Atraumatic
Respiratory: Clear to Auscultation; Negative Wheezes or Rhonchi
Cardiac: Regular Rhythm and S1/S2; Negative Murmur
GI: Soft, Nontender, Nondistended and Normal Bowel Sounds
Musculoskeletal: No Clubbing, No Cyanosis and No Edema
Neuro: Awake
--- NOTE | 2023-11-12 11:58 | CM ---
Addendum entered by Ade Oscar 11/12/23 12:25:
Medical necessity form tubed to floor, patient states she is eager to go to SNF to see her at the facility.
Original Note:
Patient seen at bedside with physician. Patient for discharge to SNF; Please call report to [phone]
[2023-11-12] MEDS: TYLENOL 650 MG PO (14:16)
[2023-11-12 14:54] VITALS: BP 141/53
--- NOTE | 2023-11-13 07:11 | W.DCSUMMARY ---
Discharge Summary
Discharge Data
Date of Admission: 11/09/23
Date of Discharge: 11/12/23
-
Pending Results: Yes
Additional Pending Results:
Pathology from surgery
Hospital Course
Primary care physician : Luis Eduardo Yusuf
Principal Discharge diagnosis : Anemia secondary to postmenopausal bleeding from endometrial cancer, leukocytosis due to extended spectrum beta-lactamase resistant Escherichia coli urinary tract infection
Chronic Discharge diagnosis : Essential hypertension, hyperlipidemia, chronic ambulatory dysfunction with chronic nonambulatory state, class III obesity, history of vasovagal syncope along with nonspecific brain MRI abnormalities
Hospital Course : Patient is a 63-year-old female from [facility] who was in the emergency department on 11/09/2023 for sudden onset of heavy postmenopausal bleeding with clots. She had vasovagal syncope with this. She did report to
gynecology that she had vaginal bleeding over the past few weeks but certainly has increased over the past 4 days with clots. Ultrasound showed thickened endometrial stripe and several fibroids in the uterus. Patient had emergent dilation and
curettage November 09, 2023. She then underwent robotic assisted total abdominal hysterectomy and bilateral salpingo-oophorectomy by gynecologic oncology. She did receive 2 units of packed red blood cells on November 09, 2023.
Problem #1: Anemia secondary to postmenopausal bleeding from endometrial cancer. Patient received 2 units of packed red blood cells, iron panel was checked and was normal. B12 was also normal. Aspirin was held initially. She was continued on her
B12 supplement. Hemoglobin dropped from 12.3 on admission down to 9.7 at which point she received 2 units of packed red blood cells. Patient's hemoglobin has continued to drift downwards likely from IV fluid administration and dilution. Patient
is no longer bleeding as she has had removal of her uterus by gynecologic oncology. She has been cleared for discharge by them. In regards to the endometrial cancer, patient will follow-up with [facility] oncology for initiation of treatment plans.
Problem #2: Leukocytosis due to extended spectrum beta-lactamase resistant Escherichia coli urinary tract infection. Patient's white count was normal on admission at 6.4 but bumped to 14.2. Urine culture done on November 08 shows ESBL Escherichia coli
and strep species. She was initially started on cefepime however infectious disease was consulted. She was given 1 dose of fosfomycin p.o. and no further treatment was needed.
Problem #3: All other medical issues. These include Essential hypertension, hyperlipidemia, chronic ambulatory dysfunction with chronic nonambulatory state, class III obesity, history of vasovagal syncope along with nonspecific brain MRI
abnormalities. Patient was transferred to the medical service in order to manage these chronic medical issues. These medical issues were stable during her hospitalization. Medications were continued as able.
Patient is stable to return back to [facility] at this time. If there are any questions regarding this dictation or her hospital stay, please not hesitate to call. Our office number is [phone].
Important imaging findings :
CT SCAN ABDOMEN/PELVIS IMPRESSION: No evidence of metastatic disease of the chest, abdomen or pelvis.
Mild bibasilar consolidation probably atelectasis.
Calcified uterine fibroids.
Possible hemorrhagic products, packing material and foreign body in the vagina. Fecal material not excluded. If fecal material, a rectovaginal fistula should be considered. Clinical correlation recommended
Mild diffuse bladder wall thickening concerning for cystitis versus bladder outlet obstruction.
Procedure findings :
D&C PREOPERATIVE DIAGNOSIS: Postmenopausal hemorrhage, suspected endometrial carcinoma; fibroid uterus, anemia secondary to acute blood loss
POSTOPERATIVE DIAGNOSIS: same; suspected endometrial carcinoma, fibroid uterus, anemia secondary to acute blood loss
PROCEDURE: Diagnostic hysteroscopy D&C
SURGEON:Fadia Landaverde DO
ANESTHESIA: general ET, Dr. Brunner
EBL: 400ml
FINDINGS: Enlarged bulky uterus approximately 15 cm size, irregular contour consistent with uterine fibroids. Abnormal appearing endometrial tissue suspicious for endometrial carcinoma. Endometrial clot. Tubal ostia visualized poorly due to clot in
uterus.
[facility] Preoperative diagnosis: Endometrial cancer, acute blood loss anemia
Postoperative diagnosis same
Procedure:
Robotic assisted total laparoscopic hysterectomy bilateral salpingo-oophorectomy [id number]
Mini laparotomy for extraction of specimen
Injection of cervix with ICG dye, bilateral for mapping and identification of sentinel lymph [id number]
Laparoscopic bilateral pelvic lymph sentinel lymphadenectomy [id number]
Tap block
Surgeon: Rajinder Lagos
Assist: Adolph Sims PA-C, MIGUEL ANGEL May
Anesthesia General endotracheal intubation
Estimated blood loss: 100 cc
Complication: None
Discharge Plan
-
Patient Disposition: Correction/SNF
Discharge Diagnosis/Procedures: Anemia secondary to postmenopausal bleeding from endometrial cancer, endometrial cancer status post robotic assisted total abdominal hysterectomy and bilateral salpingo-oophorectomy, leukocytosis due to extended
spectrum beta-lactamase resistant Escherichia coli urinary tract infection, hyperglycemia, essential hypertension, hyperlipidemia, chronic ambulatory dysfunction and nonambulatory at baseline, class II obesity, nonspecific brain abnormalities and
vasovagal syncope
Condition: Good
Diet: As tolerated and Regular
Activity: As tolerated
Driving Restrictions: No driving
Bathing Restrictions: None
Referrals:
Luis Eduardo Yusuf I., DO [Family Provider] - in less than 1 week
Prescriptions:
Continued
atorvastatin 10 mg tablet
10 mg PO DAILY
cyanocobalamin (vitamin B-12) [Vitamin B-12] 1,000 mcg Tablet
1,000 mcg PO DAILY
aspirin 81 mg Tablet,Delayed Release (Dr/Ec)
81 mg PO DAILY
acetaminophen 325 mg Tablet
650 mg PO Q6HPRN PRN (Reason: mild pain/temp) Qty: 0 0RF
Discontinued
acetaminophen 325 mg Tablet
650 mg PO Q4H PRN (Reason: temp>100F)
Discharge Orders:
Discharge Patient (As Directed); Ordered 11/12/23
Ordered By: Alissa Workman
Discharge Date and Time
Discharge Date/Time: 11/12/23 14:46
Print Language: CHINESE
== END 2023-11-12 14:46 | DRG 739 ==
LOC: 3 WEST ACU 15:34
PROVIDERS: Clinical Nurse Specialist Family Health; Obstetrics & Gynecology Gynecologic Oncology; Physician Assistant; ADMITTING PHYSICIAN Obstetrics & Gynecology; ATTENDING PHYSICIAN Internal Medicine; CONSULT PHYSICIAN Internal Medicine Cardiovascular Disease; EMERGENCY PHYSICIAN Emergency Medicine; FAMILY PHYSICIAN Internal Medicine; OTHER PHYSICIAN Hospitalist; OTHER PHYSICIAN Internal Medicine Infectious Disease
PROC: 30233N1 Transfusion of Nonautologous Red Blood Cells into Peripheral Vein, Percutaneous Approach (ICD-10-PCS; 2023-11-09)
PROC: 0UDB8ZZ Extraction of Endometrium, Via Natural or Artificial Opening Endoscopic (ICD-10-PCS; 2023-11-09)
PROC: 0UT24ZZ Resection of Bilateral Ovaries, Percutaneous Endoscopic Approach (ICD-10-PCS; 2023-11-10)
PROC: 0UT94ZZ Resection of Uterus, Percutaneous Endoscopic Approach (ICD-10-PCS; 2023-11-10)
PROC: 8E0W4CZ Robotic Assisted Procedure of Trunk Region, Percutaneous Endoscopic Approach (ICD-10-PCS; 2023-11-10)
PROC: 07BC4ZZ Excision of Pelvis Lymphatic, Percutaneous Endoscopic Approach (ICD-10-PCS; 2023-11-10)
PROC: 0UT74ZZ Resection of Bilateral Fallopian Tubes, Percutaneous Endoscopic Approach (ICD-10-PCS; 2023-11-10)
DX: C54.1 Malignant neoplasm of endometrium (principal); R57.8 Other shock; D62 Acute posthemorrhagic anemia; Z16.12 Extended spectrum beta lactamase (ESBL) resistance; J98.11 Atelectasis; N95.0 Postmenopausal bleeding; D25.2 Subserosal leiomyoma of uterus; E66.01 Morbid (severe) obesity due to excess calories; E78.00 Pure hypercholesterolemia, unspecified; Z68.33 Body mass index [BMI] 33.0-33.9, adult; I10 Essential (primary) hypertension; N30.90 Cystitis, unspecified without hematuria; B96.20 Unspecified Escherichia coli [E. coli] as the cause of diseases classified elsewhere; I25.10 Atherosclerotic heart disease of native coronary artery without angina pectoris; R55 Syncope and collapse; R26.2 Difficulty in walking, not elsewhere classified; R73.9 Hyperglycemia, unspecified; Z74.01 Bed confinement status; Z79.82 Long term (current) use of aspirin; Z79.899 Other long term (current) drug therapy; Z80.49 Family history of malignant neoplasm of other genital organs; Z80.3 Family history of malignant neoplasm of breast
CPT/HCPCS: 88305; 88307; 88309; 88311; 88332; 71260; 74177; 80048; 80051; 80053; 82565; 82607; 82728; 82746; 83036; 83540; 83550; 83735; 84439; 84443; 84520; 85014; 85018; 85025; 85027; 85610; 85730; 86304; 86850; 86870; 86900; 86901; 86902; 86905; 86920; 86922; 87077; 87086; 87088; 87186; 88112; 88331; 88341; 88342; 88360; 93005; 93306; 96361; 96374; 96375; 99291; 99292; G0123; P9016; Q9967